=== PATIENT | female | born 1945 | race Caucasian/White ===

== ENCOUNTER → 2016-09-11 | Outpatient (CLI) | payer MEDICARE, OTHER ==
[~2016-09-11] MED LIST: CALC-146 PO; CALC-80 PO; ESCT10T PO; HYDR-34 PO; HYDR200T46 PO; MULT-608 PO; PLAQUENIL PO; PNT40TEC PO; SIMV20TA3 PO; TRAZ150T42 PO; TRAZ50TA67 PO; [UNRECOGNIZED DRUG - OTHER] PO
--- NOTE | 2016-09-11 10:36 | Diagnostic Imaging Report ---
PROCEDURE: US Thyroid. TECHNIQUE: Multiple real-time grayscale images were obtained of the thyroid in various projections. INDICATION: Followup thyroid nodules. COMPARISON: 01/18/2015, 01/13/2014 and 05/13/2013. DISCUSSION: The thyroid gland is normal in echotexture and size. The right thyroid measures 3.9 x 1.4 x 1.2 cm. The left thyroid measures 4.2 x 1.3 x 1.4 cm. Densely calcified nodule within the inferior right thyroid measures 0.9 x 1.2 x 0.8 cm, stable. Mixed density nodule within the mid left thyroid lobe measure slightly larger on today's exam measuring 1.1 x 0.8 x 0.6 cm, previously 0.8 x 0.4 x 0.5 cm. The overall appearance of the nodule is otherwise stable. Recommend 6-12 month sonographic followup. No new nodule identified. No abnormal adjacent lymph nodes identified. IMPRESSION: 1. Heterogenous solid nodule within the left thyroid gland shows slight interval increase in size though maintains an overall benign appearance. Recommend 6-12 month sonographic followup to document stability. Dictated by: Dictated on workstation # [id number]
== END ==
LOC: RAD 10:02
PROVIDERS: ATTEND Otolaryngology Otolaryngology/Facial Plastic Surgery
DX: E04.1 Nontoxic single thyroid nodule (principal)
CPT/HCPCS: 76536

== ENCOUNTER 2016-10-22 20:26 | Emergency (ER) | payer MEDICARE, OTHER ==
[~2016-10-22] VITALS: Ht 160 cm; Wt 56.7 kg
[2016-10-22] MEDS ORDERED: KETOROLAC 30 MG/ML VIAL IM ONE (21:00)
--- NOTE | 2016-10-22 21:03 | ED Fall/Injury ---
General Chief Complaint: Trauma-Non Activation Stated Complaint: FALL, BRUISING/SWELLING TO EYE Nursing Triage Note: PT STATES FELL AT APPROX 4PM, TRIPPED HIT FACE L EYE AREA AND R WRIST. PT HAS LARGE BLACK EYE ON L SIDE AND SWELLING AND BRUISING TO R WRIST. DENIES LOC,DENIES NECK PAIN Source: patient, family (daughter) Exam Limitations: no limitations History of Present Illness Time seen by provider: 21:03 Initial Comments Patient was at a meeting in [place] today and she had a fall also walking from standing. She stumbled over her own feet and landed on her right wrist and left side of her face. She has a large hematoma around her eye and [place]. She' s having some pain. She drove home easily afterwards and has had no blurry vision, and only marginal pain. No nausea or vomiting. No syncope. She did strike her head. She is not on any blood thinners or aspirin. Allergies and Home Medications Allergies Coded Allergies: No Known Drug Allergies (Unverified , 08/16/12) Home Medications Calcium Cmb 2/D3/Min Cmb34/Gen 1 Each Tablet, 1 TAB PO DAILY, (Reported) Escitalopram Oxalate 10 Mg Tablet, 10 MG PO DAILY, (Reported) Hydroxychloroquine Sulfate 200 Mg Tab, 400 MG PO DAILY, (Reported) take 2 (200 mg) tablets Multivitamins 1 Tab Tablet, 1 TAB PO DAILY, (Reported) Pantoprazole Sodium 40 Mg Tablet.dr, 1 TAB PO DAILY, #30 (Reported) Simvastatin 20 Mg Tablet, 20 MG PO DAILY, (Reported) Trazodone Hcl 50 Mg Tablet, 50 MG PO HS, (Reported) Constitutional: No chills, No diaphoresis, No fever, No malaise Eyes: Denies Blurred Vision, Denies Drainage Ears, Nose, Mouth, Throat: denies ear pain, denies ear discharge Respiratory: No cough, No short of breath Cardiovascular: No chest pain, No palpitations Gastrointestinal: No abdominal pain, No constipation, No diarrhea, No nausea Genitourinary: No discharge, No dysuria : No Musculoskeletal: see HPI, No back pain, joint pain, joint swelling Skin: lumps (hematoma over left), No pruritus, No rash Psychiatric/Neurological: Headache, Denies Numbness, Denies Seizure Past Eywdtvb-Nfgekn-Jaqqgj Hx Patient Social History Alcohol Use: Rarely Uses Recreational Drug Use: No Smoking Status: Never a Smoker Recent Foreign Travel: No Contact w/Someone Who Travel: No Recent Infectious Disease Expo: No Recent Hopitalizations: No Immunizations Up To Date Date of Pneumonia Vaccine: Dec 08, 2008 Date of Influenza Vaccine: Dec 25, 2012 Respiratory History of Respiratory Disorde: No Cardiovascular History of Cardiac Disorders: No Neurological History of Neurological Disord: No Reproductive System Hx Reproductive Disorders: No Sexually Transmitted Disease: No Gastrointestinal History of Gastrointestinal Di: No Musculoskeletal History of Musculoskeletal Dis: Yes (BACK) Endocrine History of Endocrine Disorders: No Cancer History of Cancer: No Psychosocial History of Psychiatric Problem: Yes Behavioral Health Disorders: Depression Blood Transfusions History of Blood Disorders: No Physical Exam Vital Signs Vital Sign - Last 12Hours 10/22/16 20:40 Temp 97.9 Pulse 97 Resp 18 B/P (MAP) 147/68 Pulse Ox 95 Capillary Refill : Less Than 3 Seconds General Appearance: WD/WN, no apparent distress HEENT: PERRL/EOMI, normal ENT inspection, TMs normal, pharynx normal, other ( left eye orbital hematoma) Neck: non-tender, full range of motion, supple, normal inspection Cardiovascular: normal peripheral pulses, regular rate, rhythm, no edema, no murmur Respiratory: chest non-tender, lungs clear, normal breath sounds Peripheral Pulses: 2+ Radial Pulses (R), 2+ Radial Pulses (L) Gastrointestinal: normal bowel sounds, non tender, soft Back: normal inspection, no vertebral tenderness Extremities: normal range of motion, normal inspection, no pedal edema, normal capillary refill Neurologic/Psychiatric: hat brim curler II-XII nml as tested, no motor/sensory deficits, alert, normal mood/affect, oriented x 3 Skin: warm/dry, other (hematoma around the left eye) [place] Coma Score Best Eye Response: (4) Open Spontaneously Best Verbal Response: (5) Oriented Best Motor Response: (6) Obeys Commands [place] Total: 15 Progress/Results/Core Measures Results/Orders My Orders Orders - ARMANDO RANDLE Ct Head/Maxillofacial Wo (10/22/16 20:59) Ua Culture If Indicated (10/22/16 20:59) Wrist, Right, 3 Views Or More (10/22/16 20:59) Ketorolac Injection (Toradol Injection) (10/22/16 21:00) Medications Given in ED Current Medications Medications Dose Ordered Sig/Jenelle Route Start Time Stop Time Status Last Admin Dose Admin Ketorolac Tromethamine 15 mg ONCE ONCE IM 10/22/16 21:00 10/22/16 21:03 DC 10/22/16 21:06 15 MG Vital Signs/I&O Vital Sign - Last 12Hours 10/22/16 20:40 Temp 97.9 Pulse 97 Resp 18 B/P (MAP) 147/68 Pulse Ox 95 Blood Pressure Mean: 94 Diagnostic Imaging Diagonstic Imaging: CT Plain Films/CT/US/NM/MRI: head (face) Comments NAME: SKYSERGIOGema Casillas MED REC#: [id number] PHYSICIAN: ARMANDO RANDLE MD CC: SANJUANITA ALBERT MD; ARMANDO RANDLE Page 2 of 2 RADIOLOGY REPORT VIA [place], [place] CC: SANJUANITA ALBERT MD; ARMANDO RANDLE Page 1 of 2 RADIOLOGY REPORT NAME: SKYSERGIOGema Casillas MED REC#: [id number] PT STATUS: REG ER : 1945 PHYSICIAN: ARMANDO RANDLE MD ADMIT DATE: 10/22/16/ER Signed Date of Exam: 10/22/16 CT HEAD/MAXILLOFACIAL WO PROCEDURE: CT head and maxillofacial without contrast. TECHNIQUE: Multiple contiguous axial images were obtained through the head and facial bones without the use of intravenous contrast. INDICATION: Fall with head and facial injuries and associated bruising and swelling. CT HEAD: Multiple contiguous axial CT images of the head were obtained. FINDINGS: Ventricles and sulci are within normal limits for size. There is no intracranial hemorrhage identified. There is no abnormal mass effect or shift of midline structures. IMPRESSION: Unremarkable CT of the head. CT MAXILLOFACIAL: There is a large left periorbital hematoma consistent with ecchymosis which extends anterior to the left maxilla. There is, however, no evidence of fracture. No paranasal sinus air-fluid level is detected. Moderate degenerative changes are seen within the temporomandibular joints. 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 IMPRESSION: Left periorbital ecchymosis without evidence of fracture. Degenerative changes are noted in the temporal mandibular joints and visualized cervical spine. Dictated by: Dictated on workstation # [id number] Dict: 10/22/162133 Trans: 10/22/162140 Interpreted by: SANJUANITA ALBERT MD Electronically signed by: SANJUANITA ALBERT MD 10/22/162140 Reviewed: Reviewed by Me Diagonstic Imaging: Xray Plain Films/CT/US/NM/MRI: other (r wrist) Comments NAME: KEYANNA SWANSON [facility] REC#: [id number] PT STATUS: REG ER : 1945 PHYSICIAN: ARMANDO RANDLE MD ADMIT DATE: 10/22/16/ER Draft Date of Exam:10/22/16 WRIST, RIGHT, 3 VIEWS OR MORE INDICATION: Fall with right wrist injury AP, oblique and lateral views of the right wrist reveal a nondisplaced fracture through the metaphysis of the distal radius. No other fracture or malalignment is identified. There is no abnormal lytic or sclerotic focus. IMPRESSION: Nondisplaced distal radial metaphyseal fracture without evidence of intra-articular disruption. Dictated on workstation # [id number] Dict: 10/22/162139 Trans: 10/22/162142 HERLINDA [id number] Interpreted by: SANJUANITA ALBERT MD Electronically signed by: Reviewed: Reviewed by Me Departure Impression Impression: Primary Impression: Traumatic hematoma of forehead Qualified Codes: S00.83XA - Contusion of other part of head, initial encounter Additional Impression: Distal radius fracture, right Qualified Codes: S52.551A - Other extraarticular fracture of lower end of right radius, initial encounter for closed fracture Disposition: 01 HOME, SELF-CARE Condition: Stable Departure-Patient Inst. Decision time for Depature: 22:40 Referrals: DU SHORE MD (PCP/Family) Primary Care Physician Patient Instructions: Minor Head Injury (DC) Add. Discharge Instructions: Apply ice over your left eye or right wrist as needed every 4-6 hours for 20 minutes to control the swelling and pain. You can also use Tylenol 1000 mg every 8 hours or ibuprofen 800 mg every 8 hours. If the right hand fingers become cool, change color or her unable to feel them then you will need to loosen the splint wrappings up and return to the ER immediately for evaluation. Sunday morning you can call either Drs. Reddy At [phone] [place] [address] orthopedics and you can be seen by Dr. Nettles at [phone]. If the Tylenol ice and ibuprofen are not working then you could use the hydrocodone every 6 hours but realize that hydrocodone will cause constipation and can cause confusion and increase her risk of falls. All discharge instructions reviewed with patient and/or family. Voiced understanding. Scripts Hydrocodone/Acetaminophen (Hydrocodon -Acetaminophen 5-325) 1 Each Tablet 1 EACH PO Q6H Y for PAIN, #20 TAB 0 Refills Prov: ARMANDO RANDLE 10/22/16 Copy Copies To 1: DU SHORE MD, TITUS J Oct 22, 2016 21:03
--- NOTE | 2016-10-22 21:40 | Diagnostic Imaging Report ---
PROCEDURE: CT head and maxillofacial without contrast. TECHNIQUE: Multiple contiguous axial images were obtained through the head and facial bones without the use of intravenous contrast. INDICATION: Fall with head and facial injuries and associated bruising and swelling. CT HEAD: Multiple contiguous axial CT images of the head were obtained. FINDINGS: Ventricles and sulci are within normal limits for size. There is no intracranial hemorrhage identified. There is no abnormal mass effect or shift of midline structures. IMPRESSION: Unremarkable CT of the head. CT MAXILLOFACIAL: There is a large left periorbital hematoma consistent with ecchymosis which extends anterior to the left maxilla. There is, however, no evidence of fracture. No paranasal sinus air-fluid level is detected. Moderate degenerative changes are seen within the temporomandibular joints. 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 IMPRESSION: Left periorbital ecchymosis without evidence of fracture. Degenerative changes are noted in the temporal mandibular joints and visualized cervical spine. Dictated by: Dictated on workstation # [id number]
--- NOTE | 2016-10-22 21:44 | Diagnostic Imaging Report ---
INDICATION: Fall with right wrist injury AP, oblique and lateral views of the right wrist reveal a nondisplaced fracture through the metaphysis of the distal radius. No other fracture or malalignment is identified. There is no abnormal lytic or sclerotic focus. IMPRESSION: Nondisplaced distal radial metaphyseal fracture without evidence of intra-articular disruption. Dictated by: Dictated on workstation # [id number]
[2016-10-22] MEDS ORDERED: HYDR-3812 PO (22:45)
[2016-10-22 22:52] VITALS: BP 140/68
[2016-10-22 22:53] LABS: BILIRUBIN,URINE NEGATIVE (NEGATIVE); KETONES,URINE NEGATIVE (NEGATIVE); LEUKOCYTE ESTERASE ,URINE 3+ (NEGATIVE); NITRITE,URINE NEGATIVE (NEGATIVE); PH,URINE 7 (5-9); PROTEIN,URINE NEGATIVE (NEGATIVE); UROBILINOGEN,URINE NORMAL (NORMAL)
[2016-10-22 23:02] LABS: WBC,URINE 50-100 /HPF
[2016-10-22] MEDS ORDERED: CEPH-507 PO (23:16)
[2016-10-22] MEDS ORDERED: CEPHALEXIN 250 MG (KEFLEX) CAP PO ONE (23:30)
--- OUTSIDE RECORDS SUMMARY | 2016-10-23 12:20 | XMS REPORT | Continuity of Care Document ---
Author Author [facility] Organization [facility] Address Unknown Phone Unavailable Allergies Active Description Code Type Severity Reaction Onset Reported/Identified Relationship to Patient Clinical Status Yes No Known Drug Allergies [id number] Drug Allergy Unknown N/ A 08/16/2012 Medications Problems Date Dx Coded Attending Type Code Diagnosis Diagnosed By 04/19/2010 Ot 592.0 CALCULUS OF KIDNEY 04/19/2010 Ot 592.1 CALCULUS OF URETER 07/07/2010 Ot 735.4 OTHER HAMMER TOE 08/23/2012 MINERVA DPAbner, CAROLYN Mcghee Ot 735.4 12/08/2013 NORA ALCANTAR, DENISHA Levine Ot 211.1 BENIGN NEOPLASM STOMACH 12/08/2013 NORA ALCANTAR, DENISHA Levine Ot 531.90 STOMACH ULCER NOS 02/09/2014 KITA ELIZONDO MD Ot 241.0 02/09/2014 KITA ELIZONDO MD Ot 413.9 02/23/2014 Ot 787.3 02/23/2014 Ot 789.00 02/23/2014 Ot V76.12 02/23/2014 Ot V76.12 02/23/2014 Ot 724.4 02/23/2014 Ot V45.4 02/23/2014 MINERVA DPAbner, CAROLYN Mcghee Ot 735.4 02/23/2014 MINERVA MCKINNEY, CAROLYN Mcghee Ot V72.83 02/23/2014 MINERVA MCKINNEY, CAROLYN Mcghee Ot V74.8 02/23/2014 MOIZ ALCANTAR, JULIUS Gr Ot 724.02 02/23/2014 JULIUS ROCKWELL MD Ot 738.4 02/23/2014 KITA ELIZONDO MD Ot 241.0 02/23/2014 KITA ELIZONDO MD Ot 611.72 03/19/2014 Ot 787.3 03/19/2014 Ot 789.00 03/19/2014 Ot V76.12 03/19/2014 Ot V76.12 03/19/2014 Ot 724.4 03/19/2014 Ot V45.4 03/19/2014 PALMA DPM, CAROLYN P Ot 735.4 03/19/2014 PALMA DPM, CAROLYN P Ot V72.83 03/19/2014 PALMA DPM, CAROLYN P Ot V74.8 03/19/2014 MOIZ ALCANTAR, JULIUS J Ot 724.02 03/19/2014 MOIZ ALCANTAR, JULIUS J Ot 738.4 03/19/2014 CARO ALCANTAR, KITA Levine Ot 241.0 03/19/2014 CARO ALCANTAR, KITA Levine Ot 611.72 03/20/2014 Ot 787.3 03/20/2014 Ot 789.00 03/20/2014 Ot V76.12 03/20/2014 Ot V76.12 03/20/2014 Ot 724.4 03/20/2014 Ot V45.4 03/20/2014 PALMA DPM, CAROLYN P Ot 735.4 03/20/2014 PALMA DPM, CAROLYN P Ot V72.83 03/20/2014 PALMA DPM, CAROLYN P Ot V74.8 03/20/2014 MOIZ ALCANTAR, JULIUS J Ot 724.02 03/20/2014 MOIZ ALCANTAR, JULIUS Gr Ot 738.4 03/20/2014 CARO ALCANTAR, KITA Levine Ot 241.0 03/20/2014 CARO ALCANTAR, KITA Levine Ot 611.72 06/26/2014 CARO ALCANTAR, KITA Levine Ot 473.9 06/26/2014 CARO ALCANTAR, KITA Levine Ot V15.88 06/26/2014 CARO ALCANTAR, KITA Levine Ot 473.9 06/26/2014 CARO ALCANTAR, KITA M Ot V15.88 07/25/2014 CARO ALCANTAR, KITA M Ot 473.9 07/25/2014 CARO ALCANTAR, KITA Levine Ot V15.88 08/19/2014 LOLIS SPRING LEATHER COVERER Ot 368.2 08/19/2014 LOLIS SPRING LEATHER COVERER Ot 433.10 08/19/2014 LOLIS SPRING LEATHER COVERER Ot 433.30 08/19/2014 LOLIS SPRING LEATHER COVERER Ot 784.0 11/10/2014 MONE ALCANTAR, DU Odell Ot V76.12 02/11/2015 SHIVANI ALCANTAR, KERMIT P Ot E04.2 04/15/2015 Ot 610.0 04/15/2015 Ot 592.0 04/15/2015 Ot 592.1 04/15/2015 Ot V72.63 04/15/2015 Ot V74.8 04/15/2015 Ot 455.0 04/15/2015 Ot 455.3 04/15/2015 Ot V76.51 04/15/2015 Ot 735.4 04/15/2015 Ot V72.84 04/15/2015 Ot V74.8 04/15/2015 SHIVANI ALCANTAR, KERMIT Mcghee Ot 241.0 04/15/2015 SHIVANI ALCANTAR, KERMIT Mcghee Ot 241.0 04/15/2015 CARO ALCANTAR, KITA M Ot V15.89 04/15/2015 CARO ALCANTAR, KITA M Ot V76.11 04/15/2015 CARO ALCANTAR, KITA M Ot 789.01 04/15/2015 CARO ALCANTAR, KITA M Ot 789.06 04/15/2015 CARO ALCANTAR, KITA M Ot 789.01 04/15/2015 NORA ALCANTAR, DENISHA M Ot V72.84 04/15/2015 CARO ALCANTAR, KITA M Ot 241.0 04/15/2015 CARO ALCANTAR, KITA M Ot 413.9 04/15/2015 CARO ALCANTAR, KITA M Ot 473.9 04/15/2015 CARO ALCANTAR, KITA M Ot V15.88 04/15/2015 LOLIS SPRING LEATHER COVERER Ot 368.2 04/15/2015 LOLIS SPRING LEATHER COVERER Ot 433.10 04/15/2015 LOLIS SPRING LEATHER COVERER Ot 433.30 04/15/2015 LOLIS SPRING LEATHER COVERER Ot 784.0 04/15/2015 MONE ALCANTAR, DU Odell Ot V76.12 04/15/2015 SHIVANI ALCANTRA, KERMIT Mcghee Ot E04.2 04/15/2015 ORTIZ DENT CAN OPERATOR Ot R31.9 04/19/2015 SHIVANI ALCANTAR, KERMIT Mcghee Ot E04.2 04/19/2015 Ot 610.0 04/19/2015 Ot 592.0 04/19/2015 Ot 592.1 04/19/2015 Ot V72.63 04/19/2015 Ot V74.8 04/19/2015 Ot 455.0 04/19/2015 Ot 455.3 04/19/2015 Ot V76.51 04/19/2015 Ot 735.4 04/19/2015 Ot V72.84 04/19/2015 Ot V74.8 04/19/2015 SHIVANI ALCANTAR, KERMIT P Ot 241.0 04/19/2015 SHIVANI ALCANTAR, KERMIT P Ot 241.0 04/19/2015 CARO ALCANTAR, KITA M Ot V15.89 04/19/2015 CARO ALCANTAR, KITA M Ot V76.11 04/19/2015 CARO ALCANTAR, KITA M Ot 789.01 04/19/2015 CARO ALCANTAR, KITA M Ot 789.06 04/19/2015 CARO ALCANTAR, KITA M Ot 789.01 04/19/2015 NORA ALCANTAR, DENISHA M Ot V72.84 04/19/2015 CARO ALCANTAR, KITA M Ot 241.0 04/19/2015 CARO ALCANTAR, KITA M Ot 413.9 04/19/2015 CARO ALCANTAR, KITA M Ot 473.9 04/19/2015 CARO ALCANTAR, KITA M Ot V15.88 04/19/2015 LOLIS SPRING LEATHER COVERER Ot 368.2 04/19/2015 LOLIS SPRING LEATHER COVERER Ot 433.10 04/19/2015 LOLIS SPRING LEATHER COVERER Ot 433.30 04/19/2015 LOLIS SPRING LEATHER COVERER Ot 784.0 04/19/2015 MONE ALCANTAR, DU A Ot V76.12 04/19/2015 SHIVANI ALCANTAR, KERMIT P Ot E04.2 04/19/2015 ORTIZ DENT CAN OPERATOR Ot R31.9 04/19/2015 LOLIS SPRING LEATHER COVERER Ot N20.0 04/27/2015 Ot 610.0 04/27/2015 Ot 592.0 04/27/2015 Ot 592.1 04/27/2015 Ot V72.63 04/27/2015 Ot V74.8 04/27/2015 Ot 455.0 04/27/2015 Ot 455.3 04/27/2015 Ot V76.51 04/27/2015 Ot 735.4 04/27/2015 Ot V72.84 04/27/2015 Ot V74.8 04/27/2015 SHIVANI ALCANTAR, KERMIT P Ot 241.0 04/27/2015 SHIVANI ALCANTAR, KERMIT Mchgee Ot 241.0 04/27/2015 CARO ALCANTAR, KITA M Ot V15.89 04/27/2015 CARO ALCANTAR, KITA M Ot V76.11 04/27/2015 CARO ALCANTAR, KITA M Ot 789.01 04/27/2015 CARO ALCANTAR, KITA M Ot 789.06 04/27/2015 CARO ALCANTAR, KITA M Ot 789.01 04/27/2015 NORA ALCANTAR, DENISHA M Ot V72.84 04/27/2015 CARO ALCANTAR, KITA M Ot 241.0 04/27/2015 CARO ALCANTAR, KITA M Ot 413.9 04/27/2015 CARO ALCANTAR, KITA M Ot 473.9 04/27/2015 CARO ALCANTAR, KITA M Ot V15.88 04/27/2015 LOLIS SPRING LEATHER COVERER Ot 368.2 04/27/2015 LOLIS SPRING LEATHER COVERER Ot 433.10 04/27/2015 LOLIS SPRING LEATHER COVERER Ot 433.30 04/27/2015 LOLIS SPRING LEATHER COVERER Ot 784.0 04/27/2015 MONE ALCANTAR, DU A Ot V76.12 04/27/2015 SHIVANI ALCANTAR, KERMIT Mcghee Ot E04.2 04/27/2015 ORTIZ DENT APRN Ot R31.9 04/27/2015 LOLIS SPRING LEATHER COVERER Ot N20.0 05/06/2015 LOLIS SPRING LEATHER COVERER Ot N20.0 05/10/2015 ORTIZ DENT CAN OPERATOR Ot R31.9 05/18/2015 ANDRE ALCANTAR, HAROON Odell Ot N20.9 08/05/2015 Ot 610.0 SOLITARY CYST OF BREAST 08/05/2015 Ot 592.0 CALCULUS OF KIDNEY 08/05/2015 Ot 592.1 CALCULUS OF URETER 08/05/2015 Ot V72.63 PRE-PROCEDURAL LABORATORY EXAMINATION 08/05/2015 Ot V74.8 SCREEN-BACTERIAL DIS NEC 08/05/2015 Ot 455.0 INT HEMORRHOID W/O COMPL 08/05/2015 Ot 455.3 EXT HEMORRHOID W/O COMPL 08/05/2015 Ot V76.51 SCREEN MAL NEOP-COLON 08/05/2015 Ot 735.4 OTHER HAMMER TOE 08/05/2015 Ot V72.84 EXAM PRE-OPERATIVE NOS 08/05/2015 Ot V74.8 SCREEN-BACTERIAL DIS NEC 08/05/2015 SHIVANI ALCANTAR, KERMIT Mcghee Ot 241.0 NONTOX UNINODULAR GOITER 08/05/2015 SHIVANI ALCANTAR, KERMIT Mcghee Ot 241.0 NONTOX UNINODULAR GOITER 08/05/2015 CARO ALCANTAR, KITA Levine Ot V15.89 HX-HEALTH HAZARDS NEC 08/05/2015 KITA ELIZONDO MD Ot V76.11 SCRN MAMMO-HIGH RISK PT, MALIGNANT NEOPL 08/05/2015 CARO ALCANTAR, KITA Levine Ot 789.01 ABDOMINAL PAIN, RIGHT UPPER QUADRANT 08/05/2015 KITA ELIZONDO MD Ot 789.06 ABDOMINAL PAIN, EPIGASTRIC 08/05/2015 KITA ELIZONDO MD Ot 789.01 ABDOMINAL PAIN, RIGHT UPPER QUADRANT 08/05/2015 DENISHA MELENDEZ MD Ot V72.84 EXAM PRE-OPERATIVE NOS 08/05/2015 KITA ELIZONDO MD Ot 241.0 NONTOX UNINODULAR GOITER 08/05/2015 KITA ELIZONDO MD Ot 413.9 ANGINA PECTORIS NEC/NOS 08/05/2015 KITA ELIZONDO MD Ot 473.9 CHRONIC SINUSITIS NOS 08/05/2015 KITA ELIZONDO MD Ot V15.88 HISTORY OF FALL 08/05/2015 LOLIS SPRING Ot 368.2 DIPLOPIA 08/05/2015 LOLIS SPRING Ot 433.10 CAROTID ARTERY OCCLUSION W O CEREBRAL IN 08/05/2015 LOLIS SPRING Ot 433.30 MULT BILTRAL ARTERY OCCLUSION WO CEREBRA 08/05/2015 LOLSI SPRING Ot 784.0 HEADACHE 08/05/2015 MONE ALCANTAR, DU Odell Ot V76.12 OTH SCREEN MAMMO-MALIGN NEOPLASM OF RAVINDER 08/05/2015 SHIVANI ALCANTAR, KERMIT Mcghee Ot E04.2 NONTOXIC MULTINODULAR GOITER 08/05/2015 ORTIZ DENT APRN Ot R31.9 HEMATURIA, UNSPECIFIED 08/05/2015 CLEMENTINE LOLIS M LEATHER COVERER Ot N20.0 CALCULUS OF KIDNEY 08/05/2015 ANDRE ALCANTAR, HAROON Odell Ot N20.9 URINARY CALCULUS, UNSPECIFIED 08/05/2015 CLEMENTINEBLAIREGRADY Levine LEATHER COVERER Ot 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 08/06/2015 CLEMENTINE LOLIS Abner LEATHER COVERER Ot 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 08/10/2015 LOLIS SPRING LEATHER COVERER Ot 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 08/11/2015 LOLIS SPRING Abner LEATHER COVERER Ot 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 09/01/2015 LOLIS SPRING [facility] Ot 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 11/11/2015 Ot 735.4 OTHER HAMMER TOE 11/11/2015 Ot V72.84 EXAM PRE-OPERATIVE NOS 11/11/2015 Ot V74.8 SCREEN-BACTERIAL DIS NEC 11/11/2015 SHIVANI ALCANTAR, KERMIT Mcghee Ot 241.0 NONTOX UNINODULAR GOITER 11/11/2015 KERMIT PARRISH MD Ot 241.0 NONTOX UNINODULAR GOITER 11/11/2015 CARO ALCANTAR, KITA Levine Ot V15.89 HX-HEALTH HAZARDS NEC 11/11/2015 CARO ALCANTAR, KITA Levine Ot V76.11 SCRN MAMMO-HIGH RISK PT, MALIGNANT NEOPL 11/11/2015 CARO ALCANTAR, KITA Levine Ot 789.01 ABDOMINAL PAIN, RIGHT UPPER QUADRANT 11/11/2015 KITA ELIZONDO MD Ot 789.06 ABDOMINAL PAIN, EPIGASTRIC 11/11/2015 KITA ELIZONDO MD Ot 789.01 ABDOMINAL PAIN, RIGHT UPPER QUADRANT 11/11/2015 NORA ALCANTAR, DENISHA M Ot V72.84 EXAM PRE-OPERATIVE NOS 11/11/2015 KITA ELIZONDO MD Ot 241.0 NONTOX UNINODULAR GOITER 11/11/2015 KITA ELIZONDO MD Ot 413.9 ANGINA PECTORIS NEC/NOS 11/11/2015 KITA ELIZONDO MD Ot 473.9 CHRONIC SINUSITIS NOS 11/11/2015 KITA ELIZONDO MD Ot V15.88 HISTORY OF FALL 11/11/2015 LOLIS SPRING LEATHER COVERER Ot 368.2 DIPLOPIA 11/11/2015 LOLIS SPRING LEATHER COVERER Ot 433.10 CAROTID ARTERY OCCLUSION W O CEREBRAL IN 11/11/2015 LOLIS SPRING LEATHER COVERER Ot 433.30 MULT BILTRAL ARTERY OCCLUSION WO CEREBRA 11/11/2015 LOLIS SPRING LEATHER COVERER Ot 784.0 HEADACHE 11/11/2015 MONE ALCANTAR, DU Odell Ot V76.12 OTH SCREEN MAMMO-MALIGN NEOPLASM OF RAVINDER 11/11/2015 SHIVANI ALCANTAR, KERMIT Mcghee Ot E04.2 NONTOXIC MULTINODULAR GOITER 11/11/2015 ORTIZ DENT CAN OPERATOR Ot R31.9 HEMATURIA, UNSPECIFIED 11/11/2015 LOLIS SPRING LEATHER COVERER Ot N20.0 CALCULUS OF KIDNEY 11/11/2015 ANDRE ALCANTAR, HAROON Odell Ot N20.9 URINARY CALCULUS, UNSPECIFIED 11/11/2015 LOLIS SPRING LEATHER COVERER Ot 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 11/15/2015 ORTIZ DENT CAN OPERATOR Ot Z12.31 ENCNTR SCREEN MAMMOGRAM FOR MALIGNANT NE 11/24/2015 ORTIZ DENT CAN OPERATOR Ot Z12.31 ENCNTR SCREEN MAMMOGRAM FOR MALIGNANT NE 09/07/2016 SHIVANI ALCANTAR, KERMIT P Ot 241.0 NONTOX UNINODULAR GOITER 09/07/2016 KERMIT PARRISH MD Ot 241.0 NONTOX UNINODULAR GOITER 09/07/2016 KITA ELIZONDO MD Ot V15.89 HX-HEALTH HAZARDS NEC 09/07/2016 KITA ELIZONDO MD Ot V76.11 SCRN MAMMO-HIGH RISK PT, MALIGNANT NEOPL 09/07/2016 KITA ELIZONDO MD Ot 789.01 ABDOMINAL PAIN, RIGHT UPPER QUADRANT 09/07/2016 KITA ELIZONDO MD Ot 789.06 ABDOMINAL PAIN, EPIGASTRIC 09/07/2016 KITA ELIZONDO MD Ot 789.01 ABDOMINAL PAIN, RIGHT UPPER QUADRANT 09/07/2016 NORA ALCANTAR, DENISHA Levine Ot V72.84 EXAM PRE-OPERATIVE NOS 09/07/2016 KITA ELIZONDO MD Ot 241.0 NONTOX UNINODULAR GOITER 09/07/2016 KITA ELIZONDO MD Ot 413.9 ANGINA PECTORIS NEC/NOS 09/07/2016 KITA ELIZONDO MD Ot 473.9 CHRONIC SINUSITIS NOS 09/07/2016 KITA ELIZONDO MD Ot V15.88 HISTORY OF FALL 09/07/2016 LOLIS SPRING LEATHER COVERER Ot 368.2 DIPLOPIA 09/07/2016 LOLIS SPRING LEATHER COVERER Ot 433.10 CAROTID ARTERY OCCLUSION W O CEREBRAL IN 09/07/2016 LOLIS SPRING LEATHER COVERER Ot 433.30 MULT BILTRAL ARTERY OCCLUSION WO CEREBRA 09/07/2016 LOLIS SPRING LEATHER COVERER Ot 784.0 HEADACHE 09/07/2016 MONE ALCANTAR, DU Odell Ot V76.12 OTH SCREEN MAMMO-MALIGN NEOPLASM OF RAVINDER 09/07/2016 SHIVANI ALCANTAR, KERMIT Mcghee Ot E04.2 NONTOXIC MULTINODULAR GOITER 09/07/2016 ORTIZ DENT CAN OPERATOR Ot R31.9 HEMATURIA, UNSPECIFIED 09/07/2016 LOLIS SPRING LEATHER COVERER Ot N20.0 CALCULUS OF KIDNEY 09/07/2016 ANDRE ALCANTAR, HAROON Odell Ot N20.9 URINARY CALCULUS, UNSPECIFIED 09/07/2016 LOLIS SPRING LEATHER COVERER Ot 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 09/07/2016 ORTIZ DENT CAN OPERATOR Ot Z12.31 ENCNTR SCREEN MAMMOGRAM FOR MALIGNANT NE 09/11/2016 SHIVANI ALCANTAR, KERMIT Mcghee Ot 241.0 NONTOX UNINODULAR GOITER 09/11/2016 SHIVANI ALCANTAR, KERMIT Mcghee Ot 241.0 NONTOX UNINODULAR GOITER 09/11/2016 KITA ELIZONDO MD Ot V15.89 HX-HEALTH HAZARDS NEC 09/11/2016 KITA ELIZONDO MD Ot V76.11 SCRN MAMMO-HIGH RISK PT, MALIGNANT NEOPL 09/11/2016 KITA ELIZONDO MD Ot 789.01 ABDOMINAL PAIN, RIGHT UPPER QUADRANT 09/11/2016 KITA ELIZONDO MD Ot 789.06 ABDOMINAL PAIN, EPIGASTRIC 09/11/2016 KITA ELIZONDO MD Ot 789.01 ABDOMINAL PAIN, RIGHT UPPER QUADRANT 09/11/2016 NORA ALCANTAR, DENISHA eLvine Ot V72.84 EXAM PRE-OPERATIVE NOS 09/11/2016 KITA ELIZONDO MD Ot 241.0 NONTOX UNINODULAR GOITER 09/11/2016 KITA ELIZONDO MD Ot 413.9 ANGINA PECTORIS NEC/NOS 09/11/2016 KITA ELIZONDO MD Ot 473.9 CHRONIC SINUSITIS NOS 09/11/2016 KITA ELIZONDO MD Ot V15.88 HISTORY OF FALL 09/11/2016 LOLIS SPRING LEATHER COVERER Ot 368.2 DIPLOPIA 09/11/2016 LOLIS SPRING LEATHER COVERER Ot 433.10 CAROTID ARTERY OCCLUSION W O CEREBRAL IN 09/11/2016 LOLIS SPRING LEATHER COVERER Ot 433.30 MULT BILTRAL ARTERY OCCLUSION WO CEREBRA 09/11/2016 LOLIS SPRING LEATHER COVERER Ot 784.0 HEADACHE 09/11/2016 MONE ALCANTAR, DU Odell Ot V76.12 OTH SCREEN MAMMO-MALIGN NEOPLASM OF RAVINDER 09/11/2016 KERMIT PARRISH MD Ot E04.2 NONTOXIC MULTINODULAR GOITER 09/11/2016 ORTIZ DENT APRN Ot R31.9 HEMATURIA, UNSPECIFIED 09/11/2016 LOLIS SPRING LEATHER COVERER Ot N20.0 CALCULUS OF KIDNEY 09/11/2016 ANDRE ALCANTAR, HAROON Odell Ot N20.9 URINARY CALCULUS, UNSPECIFIED 09/11/2016 LOLIS SPRING Ot 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 Visit Date/Time Discharge Status Pt. Type Provider Facility Loc./Unit Complaint [id number] 09/11/2016 10:02:00 2016 23:59:59 CLS Outpatient KERMIT PARRISH MD [facility] RAD RT THYROID NODULE E04.1 [id number] 11/11/2015 09:19:00 2015 23:59:59 CLS Outpatient ORTIZ DENT APRN [facility] RAD SCREENING [id number] 08/05/2015 12:45:00 2015 23:59:59 CLS Outpatient LOLIS SPRING [facility] RAD MILD PLAQUE, 1 YEAR FOLLOW UP [id number] 04/27/2015 14:21:00 2015 23:59:59 CLS Outpatient HAROON POWELL MD [facility] RAD STONE [id number] 04/15/2015 10:15:00 2015 23:59:59 CLS Outpatient LOLIS SPRING [facility] RAD KIDNEY STONES [id number] 04/12/2015 11:12:00 2015 23:59:59 CLS Outpatient ORTIZ DENT APRN [facility] RAD HEMATURIA [id number] 01/18/2015 09:00:00 2014 23:59:59 CLS Outpatient KERMIT PARRISH MD [facility] RAD BILAT THYROID NODULES [id number] 10/20/2014 09:40:00 2014 23:59:59 CLS Outpatient DU SHORE MD [facility] RAD SCREENING [id number] 07/30/2014 13:01:00 2014 23:59:59 CLS Outpatient LOLIS SPRING [facility] RAD BRUIT FALL HEADACHE DOUBLE VISION [id number] 06/18/2014 09:29:00 2014 23:59:59 CLS Outpatient KITA ELIZONDO MD [facility] RAD SINUSITIS,FALL C/O HEADACHE [id number] 01/13/2014 06:54:00 2013 23:59:59 CLS Outpatient KITA ELIZONDO MD [facility] CARD ANGINA,F/U THYROID NODULE [id number] 12/08/2013 07:23:00 2013 10:30:00 DIS Outpatient DENISHA MELENDEZ MD [facility] UPPER GASTRIC PAIN;ABDOMINAL PAIN [id number] 12/03/2013 07:20:00 2013 23:59:59 CLS Outpatient DENISHA MELENDEZ MD [facility] PREOP UPPER GASTRIC PAIN;ABDOMINAL PAIN [id number] 11/24/2013 09:56:00 2013 23:59:59 CLS Outpatient KITA ELIZONDO MD [facility] CARD RUQ PAIN [id number] 11/12/2013 08:33:00 2013 23:59:59 CLS Outpatient KITA ELIZONDO MD [facility] RAD RUQ PAIN [id number] 10/21/2013 13:13:00 2013 23:59:59 CLS Outpatient KITA ELIZONDO MD [facility] RAD HX OF BX [id number] 05/13/2013 09:26:00 2013 23:59:59 CLS Outpatient KERMIT PARRISH MD [facility] RAD THY NODULE [id number] 11/01/2012 10:00:00 2012 23:59:59 CLS Outpatient KERMIT PARRISH MD [facility] RAD RT THYROID NODULE [id number] 10/14/2012 13:07:00 2012 23:59:59 CLS Outpatient KITA ELIZONDO MD [facility] RAD [id number] 08/23/2012 06:00:00 2012 10:25:00 DIS Outpatient CAROLYN PALMA DPM [facility] SDC [id number] 08/16/2012 09:33:00 2012 23:59:59 CLS Outpatient CAROLYN PALMA DPM [facility] PREOP [id number] 08/14/2012 07:31:00 2012 23:59:59 CLS Outpatient JULIUS ROCKWELL MD [facility] RAD [id number] 02/23/2014 16:19:00 Document Registration [id number] 12/19/2011 09:44:00 Document Registration [id number] 10/12/2011 09:53:00 Document Registration [id number] 10/06/2010 13:24:00 Document Registration [id number] 07/07/2010 05:39:00 Document Registration [id number] 07/04/2010 15:34:00 Document Registration [id number] 05/04/2010 05:52:00 Document Registration [id number] 04/19/2010 05:39:00 Document Registration [id number] 04/14/2010 07:59:00 Document Registration [id number] 04/12/2010 09:56:00 Document Registration [id number] 04/06/2010 08:28:00 Document Registration
--- OUTSIDE RECORDS SUMMARY | 2016-10-23 12:20 | XMS REPORT ---
Author TON [facility] eClinicalWorks Address Unknown Phone Unavailable Care Team Providers Care Geodetic Surveyor Technologist Name Role Phone TON BOLDEN CP Unavailable Allergies No Known Allergies Problems Problem Type Condition Code Onset Dates Condition Status Assessment Encounter for immunization Z23 Active Medications No Known Medications Procedures Procedure Coding System Code Date SINGLE IMMUNIZATION ADMIN CPT-4 75359 Jan 21, 2016 FLUZONE HIGH DOSE 65 AND UP 2015 CPT-4 03452 Jan 21, 2016 Results No Known Results Immunizations Vaccine Administration Date FLUZONE HIGH DOSE 65 AND UP 2015Jan 21, 2016 Summary Purpose eClinicalWorks Submission
--- OUTSIDE RECORDS SUMMARY | 2016-10-23 12:20 | XMS REPORT ---
Author Author TREVOR LERMA Organization eClinical[employer] Address Unknown Phone Unavailable Care Team Providers Care Nut Picker Name Role Phone TREVOR LERMA CP Unavailable Allergies, Adverse Reactions, Alerts Substance Reaction Event Type N.K.D.A. Info Not Available Non Drug Allergy Problems Problem Type Condition Code Onset Dates Condition Status Assessment Acute non-recurrent frontal sinusitis J01.10 Active Assessment Shortness of breath R06.02 Active Medications Medication Code System Code Instructions Start Date End Date Status Dosage Augmentin [facility] [address]-69 875-125 MG Orally every 12 hrs Dec 06, 2015 Dec 16, 2015 1 tablet Azithromycin [facility] [address]-72 250 MG Orally Once a day Dec 02, 2015 Dec 07, 2015 2 tablets on the first day, then 1 tablet daily for 4 days Fluticasone Propionate [facility] [address]-45 50 MCG/ACT Nasally Once a day Dec 02, 2015 1-2 spray in each nostril Hydroxychloroquine Sulfate [facility] [address]-53 200 MG Orally Once a day 1 tablet with food or milk Trazodone HCl [facility] [address]-73 50 MG Orally Once a day 1 tablet at bedtime as needed Lexapro [facility] [address]-14 10 MG Orally Once a day 1 tablet Procedures Procedure Coding System Code Date CHEST X-RAY CPT-4 29529 Dec 06, 2015 [facility] VISIT ESTABLISHED PATIENT CPT-4 G0467 Dec 06, 2015 MEASURE BLOOD OXYGEN LEVEL CPT-4 24348 Dec 06, 2015 Office Visit, Est Pt., Level 3 CPT-4 93763 Dec 06, 2015 Vital Signs Date/Time: Dec 06, 2015 Cardiac Monitoring Heart Rate 92 bpm Weight 120.2 lbs Height 64 in BMI 20.63 Index Oximetry 95 % Blood Pressure Diastolic 78 mmHg Blood Pressure Systolic 142 mmHg Results No Known Results Summary Purpose eClinicalWorks Submission
== END 2016-10-22 23:22 | disposition home or self-care (01) ==
LOC: EDUNIT# 20:26 → ER 20:28
DX: S52.591A Other fractures of lower end of right radius, initial encounter for closed fracture (principal); S00.83XA Contusion of other part of head, initial encounter; F32.9 Major depressive disorder, single episode, unspecified; W01.0XXA Fall on same level from slipping, tripping and stumbling without subsequent striking against object, initial encounter; Y93.01 Activity, walking, marching and hiking
CPT/HCPCS: 29125; 70450; 70486; 73110; 81000; 87088; 96372

== ENCOUNTER → 2016-11-18 | Outpatient (CLI) | payer MEDICARE, OTHER ==
[~2016-11-18] MED LIST changes: +CEPH-507 PO; +HYDR-3812 PO
--- NOTE | 2016-11-18 16:34 | Diagnostic Imaging Report ---
PROCEDURE: MR imaging of the brain without contrast. INDICATION: Status post fall one month earlier hitting left side of head. Headaches. TECHNIQUE: Multiplanar, multisequence MR imaging of the brain was performed without contrast. CORRELATION STUDY: CT head 10/22/2016. FINDINGS: Ventricles and sulci are unremarkable. There are no restricted areas of diffusion. No midline shift or mass effect. No edema pattern. No significant white matter signal abnormalities. Craniocervical junction and midline structures appearing unremarkable. Sella unremarkable. Normal expected intracranial flow voids. No significant gradient echo signal abnormalities. The paranasal sinuses and mastoid air cells relatively clear. Previously noted left periorbital edema has resolved. IMPRESSION: Unremarkable noncontrast MRI examination brain. Dictated by: Dictated on workstation # [id number]
== END ==
LOC: RAD 11:23
PROVIDERS: ATTEND Nurse Practitioner Family
DX: R51 Headache (principal)
CPT/HCPCS: 70551

== ENCOUNTER → 2016-12-07 | Outpatient (CLI) | payer MEDICARE, OTHER ==
--- NOTE | 2016-12-08 13:02 | Diagnostic Imaging Report ---
Bilateral screening mammogram 2D views with tomosynthesis. The current study was also evaluated with a Computer Aided Detection (CAD) system. INDICATION: Screening. No current complaints stated on the questionnaire. COMPARISON: 11/11/15. FINDINGS: The breasts are composed of heterogenously dense parenchyma which may decrease mammographic sensitivity. Biopsy clip in the right breast is seen. Allowing for technique and positional differences, no suspicious change is seen. IMPRESSION: Dense breasts with no definite change. ACR BI-RADS Category 2: Benign findings. Result letter will be mailed to the patient. Note: At least 10% of breast cancer is not imaged by mammography. Dictated on workstation # [id number]
== END ==
LOC: RAD 13:22
PROVIDERS: ATTEND Nurse Practitioner Family
DX: Z12.31 Encounter for screening mammogram for malignant neoplasm of breast (principal)
CPT/HCPCS: 77067

== ENCOUNTER → 2017-04-23 | Outpatient (CLI) | payer MEDICARE, OTHER ==
[~2017-04-23] MED LIST changes: +ACHD5005 PO; -HYDR-3812 PO
--- NOTE | 2017-04-23 17:09 | Diagnostic Imaging Report ---
EXAMINATION: Magnetic resonance imaging of the right wrist without contrast. DATE: April 23, 2017. COMPARISON: Right wrist radiographs October 22, 2016. INDICATION: 71-year-old female, history of fracture in September 2016. Persistent right-sided wrist pain. TECHNIQUE: Magnetic Resonance Imaging sequences were performed of the wrist without contrast. FINDINGS: TRIANGULAR FIBROCARTILAGE COMPLEX: There is no discretely identified tear of the triangular fibrocartilage complex on non-arthrogram evaluation. There is a small amount of fluid in the distal radioulnar joint. INTRINSIC LIGAMENTS: There is increased signal in the region of the central aspect of the scapholunate ligament on coronal gradient echo sequence image 31 which does question a small perforation or tear of the scapholunate ligament at this location. There is no abnormal widening of the scapholunate interval. The lunotriquetral ligament is grossly intact. JOINTS: There is a small amount of fluid in the distal radioulnar joint. There are mild changes of osteoarthritis at the first carpometacarpal joint. CARPAL TUNNEL: The flexor retinaculum is unremarkable. The flexor digitorum superficialis and profundus are intact. The median nerve is unremarkable. FLEXOR TENDONS: The flexor carpi ulnaris, flexor pollicis longus and carpi radialis are intact. EXTENSOR TENDONS: There is a small amount of fluid within the first, second, third, fourth, fifth, and sixth extensor compartment tendon sheaths compatible with low-level tenosynovitis. There is no identified tear of an extensor tendon. BONE: There is prominent edema-like signal in the ulnar aspect of the distal radius without visible fracture line. This may potentially relate to bone contusion. There are no pathognomonic signal changes of osteonecrosis. There is low level degenerative-related marrow edema adjacent to the first carpometacarpal joint. BURSAE AND SOFT TISSUES: The bursae and soft tissues surrounding the wrist are within normal limits. IMPRESSION: 1. Prominent marrow edema in the ulnar aspect of the distal radius without identified fracture line. This may relate to bone contusion. 2. No pathognomonic signal changes of osteonecrosis. No currently visible fracture line. 3. Small amount of fluid in the distal radioulnar joint without visible tear of the triangular fibrocartilage complex on non-arthrogram evaluation. 4. Abnormal signal in the region of the central membranous portion of the scapholunate ligament which may potentially relate to a small tear or perforation. This may be better evaluated with MRI arthrogram if clinically indicated. There is no widening of the scapholunate interval. 5. Grossly intact lunotriquetral ligament. 6. Low-level tenosynovitis involving all of the extensor compartment tendons. Dictated by: Dictated on workstation # [id number]
== END ==
LOC: RAD 15:15
PROVIDERS: ATTEND Nurse Practitioner
DX: M25.431 Effusion, right wrist (principal); M65.88 Other synovitis and tenosynovitis, other site; M24.131 Other articular cartilage disorders, right wrist; Z87.81 Personal history of (healed) traumatic fracture
CPT/HCPCS: 73221

== ENCOUNTER → 2018-01-25 | Outpatient (CLI) | payer MEDICARE, OTHER ==
--- NOTE | 2018-01-25 12:28 | Diagnostic Imaging Report ---
INDICATION: Routine screening. COMPARISON: 12/07/2016 and 11/11/2015. TECHNIQUE: 2D and 3D bilateral screening mammography was performed with CAD. FINDINGS: Both breasts are heterogeneously dense, limiting the sensitivity of mammography. A biopsy clip in the upper outer right breast is noted. There are benign parenchymal and vascular calcifications bilaterally. No mass or malignant appearing microcalcifications are seen. The axillae are unremarkable. IMPRESSION: No mammographic features suspicious for malignancy are identified. ACR BI-RADS Category 2: Benign findings. Result letter will be mailed to the patient. Note: At least 10% of breast cancer is not imaged by mammography. Dictated by: Dictated on workstation # [id number]
== END ==
LOC: RAD 10:59
PROVIDERS: ATTEND Nurse Practitioner Family
DX: Z12.31 Encounter for screening mammogram for malignant neoplasm of breast (principal)
CPT/HCPCS: 77067

== ENCOUNTER → 2018-05-27 | Outpatient (CLI) | payer MEDICARE, OTHER ==
--- NOTE | 2018-05-27 18:57 | Diagnostic Imaging Report ---
PROCEDURE: CT chest without contrast. TECHNIQUE: Multiple contiguous axial images were obtained through the chest without the use of intravenous contrast. Auto Exposure Controls were utilized during the CT exam to meet ALARA standards for radiation dose reduction. INDICATION: Chronic cough. COMPARISON: No priors. FINDINGS: The lungs are clear. No mass or acute infiltrate. There is no evidence for thoracic lymphadenopathy. There is no pleural or pericardial effusion. No acute chest wall pathology. Upper abdomen reveals nonobstructing left renal calcifications with no free air or free fluid. IMPRESSION: No mass, infiltrate, effusion, or acute appearing abnormalities. Dictated by: Dictated on workstation # [id number]
== END ==
LOC: RAD 14:41
PROVIDERS: ATTEND Pediatrics
DX: R05 Cough (principal)
CPT/HCPCS: 71250

== ENCOUNTER → 2018-07-09 | Outpatient (CLI) | payer MEDICARE, OTHER ==
[2018-07-09 09:21] LABS: BASOPHILS % (AUTO) 0 % (0-10); EOSINOPHILS % (AUTO) 1 % (0-10); HEMATOCRIT 37 % (35-52); LYMPHOCYTES # (AUTO) 1.5 X 10^3 (1.0-4.0); LYMPHOCYTES % (AUTO) 23 % (12-44); MEAN CORPUSCULAR HEMOGLOBIN 32 PG (25-34); MEAN CORPUSCULAR HGB CONC 33 G/DL (32-36); MEAN CORPUSCULAR VOLUME 99 FL (80-99); MEAN PLATELET VOLUME 8.8 FL (7.4-10.4); MONOCYTES # (AUTO) 0.4 X 10^3 (0.0-1.0); MONOCYTES % (AUTO) 5 % (0-12); NEUTROPHILS # (AUTO) 4.7 X 10^3 (1.8-7.8); NEUTROPHILS % (AUTO) 71 % (42-75); PLATELET COUNT 259 10^3/uL (130-400); RED CELL DISTRIBUTION WIDTH 13.3 % (10.0-14.5); WHITE BLOOD COUNT 6.7 10^3/uL (4.3-11.0)
[2018-07-10 05:56] LABS: ALTERNARIA MOLD RAST <0.35 kU/L (<0.35); RAGWEED RAST <0.35 kU/L (<0.35)
== END ==
LOC: LAB 09:05
PROVIDERS: ATTEND Nurse Practitioner Family
DX: R06.00 Dyspnea, unspecified (principal); J30.9 Allergic rhinitis, unspecified; R06.89 Other abnormalities of breathing; R05 Cough
CPT/HCPCS: 36415; 82785; 85025; 86003

== ENCOUNTER → 2018-09-03 | Outpatient (CLI) | payer MEDICARE, OTHER ==
--- NOTE | 2018-09-03 13:19 | Diagnostic Imaging Report ---
PROCEDURE: US Thyroid. TECHNIQUE: Multiple real-time grayscale images were obtained of the thyroid in various projections. INDICATION: Thyroid nodule. The left thyroid lobe measures 4.4 x 1.5 x 1.5 cm. There is a 13 x 6 x 8 mm cystic and solid isoechoic nodule with well-defined margins in the left lobe of the thyroid (TI-RADS 2). This is similar to prior study. No other left-sided nodules are seen. The right lobe of the thyroid measures 4.6 x 1.5 x 1.4 cm. There is a focus of calcification in the inferior right thyroid. No suspicious nodules are seen on the right. The isthmus measures 3 mm. Impression: 1. No suspicious nodules are seen. By TI-RADS criteria the left-sided nodule is not suspicious. No followup necessary. Dictated by: Dictated on workstation # [id number]
== END ==
LOC: RAD 09:53
PROVIDERS: ATTEND Otolaryngology Otolaryngology/Facial Plastic Surgery
DX: E04.1 Nontoxic single thyroid nodule (principal)
CPT/HCPCS: 76536

== ENCOUNTER → 2018-09-09 | Outpatient (CLI) | payer MEDICARE, OTHER ==
[~2018-09-09] MED LIST changes: +RT-ALBUTEROL SULF 2.5 MG/3 ML PRE-MIX VIAL INH ONE
== END ==
LOC: RT 15:40
PROVIDERS: ATTEND Nurse Practitioner Family
DX: J30.9 Allergic rhinitis, unspecified (principal)
CPT/HCPCS: 94060; 94726; 94729

== ENCOUNTER → 2019-01-10 | Outpatient (CLI) | payer MEDICARE, OTHER ==
[~2019-01-10] MED LIST changes: -RT-ALBUTEROL SULF 2.5 MG/3 ML PRE-MIX VIAL INH ONE
--- NOTE | 2019-01-10 14:14 | Diagnostic Imaging Report ---
Indication: Right breast nodule. Correlation is made with prior mammogram from 01/25/2018 and 12/07/2016. 2-D and 3-D bilateral diagnostic mammography was performed with CAD. Both breasts remain heterogeneously dense, limiting the sensitivity mammography. Biopsy clip in the upper and outer right breast mid depth is again noted. There are scattered benign calcifications bilaterally. No dominant mass or malignant-appearing microcalcifications are seen. Axillae are unremarkable. IMPRESSION: BI-RADS Category 2 No mammographic features suspicious for malignancy are identified. ACR BI-RADS Category 2: Benign findings. Result letter will be mailed to the patient. Note: At least 10% of breast cancer is not imaged by mammography. Dictated by: Dictated on workstation # [id number]
== END ==
LOC: RAD 13:43
PROVIDERS: ATTEND Pediatrics
DX: N63.10 Unspecified lump in the right breast, unspecified quadrant (principal)
CPT/HCPCS: 77066

== ENCOUNTER → 2019-07-29 | Outpatient (CLI) | payer MEDICARE, OTHER ==
--- NOTE | 2019-07-29 10:09 | Diagnostic Imaging Report ---
INDICATION: Screening for osteoporosis COMPARISON: None FINDINGS: The bone density of the hips was measured. The patient has had prior lumbar surgery and consequently the lumbar spine bone density could not be evaluated. The total T score for each hip is -1. The T score for the left femoral neck is -1.7, for the right femoral neck -1.2. All of these values indicate osteopenia. AP Spine L1-L4: [BMD (g/cm2): NA] [T-Score: NA] [Z-Score: NA] [BMD Previous: NA] [BMD % Change: NA] LT Hip Neck: [BMD (g/cm2): 0.806] [T-Score: -1.7] [Z-Score: .2] LT Hip Total: [BMD (g/cm2):0.787] [T-Score:-1.8] [Z-Score: -0.1] [BMD Previous: NA] [BMD % Change: NA] RT Hip Neck: [BMD (g/cm2):0.875] [T-Score:-1.2] [Z-Score:0.7] RT Hip Total: [BMD (g/cm2):0.782] [T-score:-1.8] [Z-Score:-0.1] [BMD Previous:NA] [BMD % Change:NA] *Indicates significant change from prior examination based on 95% confidence level. World Health Organization criteria for BMD interpretation classify patients as Normal (T-score at or above -1.0), Osteopenic (T-score between -1.0 and -2.5) or Osteoporotic (T-score at or below -2.5). LIMITATIONS AND MODIFICATION: None. FRACTURE RISK (FRAX SCORE): The ten year probability of (%): Major Osteoporotic Fracture: [16.0] Hip Fracture: [2.8] IMPRESSION: 1. The T-scores of the hips and femoral necks indicate osteopenia. 2. The bone density of the lumbar spine could not be calculated due to prior lumbar surgery. 3. See below National Osteoporosis Foundation guidelines on when to potentially initiate pharmacologic therapy. Based on the National Osteoporosis Foundation Guidelines, pharmacologic treatment should be initiated in any of the following, unless clinical conditions suggest otherwise: * Any patient with prior fragility fracture of the hip or vertebrae. A spine fracture indicates 5X risk for subsequent spine fracture and 2X risk for subsequent hip fracture. * Osteoporosis (T-score <-2.5). * Postmenopausal women and men age 50 and older with low bone mass/osteopenia (T-score between -1.0 and -2.5) by DXA and 10-year major osteoporotic fracture greater than 20% or a 10-year probability of hip fracture greater than 3%. These fracture risks are supplied above in the FRAX score, if applicable. * Clinician judgement and/or patient preferences may indicate treatment for people with 10-year fracture probabilities above or below these levels. Dictated by: Dictated on workstation # [id number]
== END ==
LOC: RAD 09:04
PROVIDERS: ATTEND Nurse Practitioner Family
DX: Z13.820 Encounter for screening for osteoporosis (principal); M81.0 Age-related osteoporosis without current pathological fracture
CPT/HCPCS: 77080

== ENCOUNTER → 2020-01-13 | Outpatient (CLI) | payer MEDICARE, OTHER ==
--- NOTE | 2020-01-13 14:17 | Diagnostic Imaging Report ---
INDICATION: Routine screening. COMPARISON: 01/10/2019 and 01/25/2018. TECHNIQUE: 2D and 3D bilateral screening mammography was performed with CAD. FINDINGS: A biopsy clip in the upper right breast is again noted. There are benign calcifications scattered throughout both breasts. No dominant mass or malignant appearing microcalcifications are seen. The axillae are unremarkable. IMPRESSION: No mammographic features suspicious for malignancy are identified. ACR BI-RADS Category 2: Benign findings. Result letter will be mailed to the patient. Note: At least 10% of breast cancer is not imaged by mammography. Dictated by: Dictated on workstation # [id number]
== END ==
LOC: RAD 10:30
PROVIDERS: ATTEND Pediatrics
DX: Z12.31 Encounter for screening mammogram for malignant neoplasm of breast (principal)
CPT/HCPCS: 77063; 77067

== ENCOUNTER → 2020-03-29 | Outpatient (CLI) | payer MEDICARE, OTHER ==
[~2020-03-29] MED LIST changes: +CATHETER FLUSH 10 ML SYR IV PRN; +HOLD METFORMIN - RECEIVED CONTRAST 20 ML VIAL IV SCH; +IOHEXOL 350 MG/ML 100 ML (OMNIPAQUE 350) VIAL IV ONE; +NS 100 ML (IVPB) BAG IV ONE
[2020-03-29 07:41] LABS: BUN/CREATININE RATIO 21; CREATININE SERUM 0.73 MG/DL (0.60-1.30); GFR ESTIMATED > 60
--- NOTE | 2020-03-29 08:36 | Diagnostic Imaging Report ---
PROCEDURE: CT angiography of the chest with contrast. TECHNIQUE: Multiple contiguous axial images were obtained through the chest after uneventful bolus administration of intravenous contrast. 3D reconstructed CTA MIP acquisitions were also performed. Auto Exposure Controls were utilized during the CT exam to meet ALARA standards for radiation dose reduction. INDICATION: Intermittent dry cough. FINDINGS: There are no intraluminal pulmonary arterial filling defects. There is no pulmonary arterial embolus. No focal consolidation. No mass, lung nodule, or lymphadenopathy. No pleural or pericardial effusion. Thoracic aorta is patent and nonaneurysmal. The visualized upper abdomen is nonacute. IMPRESSION: Negative for PE or other acute/suspicious abnormalities. Dictated by: Dictated on workstation # [id number]
== END ==
LOC: RAD 08:15
PROVIDERS: ATTEND Nurse Practitioner Family
DX: Z03.89 Encounter for observation for other suspected diseases and conditions ruled out (principal); R06.00 Dyspnea, unspecified; R05 Cough; M79.609 Pain in unspecified limb; M79.89 Other specified soft tissue disorders
CPT/HCPCS: 36415; 71275; 82565; 84520

== ENCOUNTER → 2020-04-26 | Outpatient (CLI) | payer MEDICARE, OTHER ==
[~2020-04-26] MED LIST changes: -CATHETER FLUSH 10 ML SYR IV PRN; -HOLD METFORMIN - RECEIVED CONTRAST 20 ML VIAL IV SCH; -IOHEXOL 350 MG/ML 100 ML (OMNIPAQUE 350) VIAL IV ONE; -NS 100 ML (IVPB) BAG IV ONE
== END ==
LOC: CARD 08:30
PROVIDERS: ATTEND Pediatrics
DX: R06.09 Other forms of dyspnea (principal)
CPT/HCPCS: 93306

== ENCOUNTER → 2020-10-21 | Outpatient (CLI) | payer MEDICARE, OTHER ==
--- NOTE | 2020-10-21 09:49 | Diagnostic Imaging Report ---
PROCEDURE: CT sinuses without contrast TECHNIQUE: Multiple contiguous axial images were obtained through the sinuses without the use of intravenous contrast. Coronal and sagittal reformations were then performed. Auto Exposure Controls were utilized during the CT exam to meet ALARA standards for radiation dose reduction. INDICATION: Recurrent maxillary sinusitis. COMPARISON: Maxillofacial CT without contrast 10/22/2016. FINDINGS: Minimal mucosal thickening in the floor of the left maxillary sinus posteriorly. The paranasal sinuses are otherwise clear. The ostiomeatal units and frontal recesses are patent. No large julio bullosa. Mild rightward bowing of the nasal septum. Advanced degenerative changes in the temporomandibular joints. The mastoids and middle ears are clear. Skull base is intact. Visualized intracranial contents and orbits are negative. IMPRESSION: 1. Minimal mucosal thickening in the floor of the left maxillary sinus posteriorly. The paranasal sinuses are otherwise clear. Dictated by: Dictated on workstation # [id number]
== END ==
LOC: RAD 09:15
PROVIDERS: ATTEND Pediatrics
DX: J01.01 Acute recurrent maxillary sinusitis (principal)
CPT/HCPCS: 70486

== ENCOUNTER → 2021-08-23 | Outpatient (CLI) | payer MEDICARE, OTHER ==
--- NOTE | 2021-08-23 13:58 | Diagnostic Imaging Report ---
INDICATION: Postmenopausal screening. COMPARISON: 07/29/2019 FINDINGS: AP Spine L1-L4: [BMD (g/cm2): NA] [T-Score: NA] [Z-Score: NA] [BMD Previous: NA] [BMD % Change: NA] LT Hip Neck: [BMD (g/cm2): 0.778] [T-Score: -1.9] [Z-Score: 0.1] LT Hip Total: [BMD (g/cm2):0.781] [T-Score:-1.8] [Z-Score: 0.0] [BMD Previous: 0.787] [BMD % Change: -0.8] RT Hip Neck: [BMD (g/cm2):0.848] [T-Score:-1.4] [Z-Score:0.6] RT Hip Total: [BMD (g/cm2):0.801] [T-score:-1.6] [Z-Score:0.2] [BMD Previous:0.782] [BMD % Change:2.4] *Indicates significant change from prior examination based on 95% confidence level. World Health Organization criteria for BMD interpretation classify patients as Normal (T-score at or above -1.0), Osteopenic (T-score between -1.0 and -2.5) or Osteoporotic (T-score at or below -2.5). LIMITATIONS AND MODIFICATION: None. FRACTURE RISK (FRAX SCORE): The ten year probability of (%): Major Osteoporotic Fracture: [17.5] Hip Fracture: [3.9] IMPRESSION: 1. Osteopenia (Low bone mass). 2. No significant change in bone mineral density since prior examination. 3. See below National Osteoporosis Foundation guidelines on when to potentially initiate pharmacologic therapy. Based on the National Osteoporosis Foundation Guidelines, pharmacologic treatment should be initiated in any of the following, unless clinical conditions suggest otherwise: * Any patient with prior fragility fracture of the hip or vertebrae. A spine fracture indicates 5X risk for subsequent spine fracture and 2X risk for subsequent hip fracture. * Osteoporosis (T-score <-2.5). * Postmenopausal women and men age 50 and older with low bone mass/osteopenia (T-score between -1.0 and -2.5) by DXA and 10-year major osteoporotic fracture greater than 20% or a 10-year probability of hip fracture greater than 3%. These fracture risks are supplied above in the FRAX score, if applicable. * Clinician judgement and/or patient preferences may indicate treatment for people with 10-year fracture probabilities above or below these levels. Dictated by: Dictated on workstation # [id number]
== END ==
LOC: RAD 12:09
PROVIDERS: ATTEND Pediatrics
DX: M85.80 Other specified disorders of bone density and structure, unspecified site (principal); Z78.0 Asymptomatic menopausal state
CPT/HCPCS: 77080

== ENCOUNTER → 2021-10-06 | Outpatient (CLI) | payer MEDICARE, OTHER ==
--- NOTE | 2021-10-06 16:27 | Diagnostic Imaging Report ---
PROCEDURE: MRI lumbar spine. TECHNIQUE: Multiplanar, multisequence MRI of the lumbar spine was performed without contrast. INDICATION: Back pain FINDINGS: There are postsurgical changes of an L4-S1 posterior instrumentation and as well as anterior lumbar fusion at L4-L5 and L5-S1. The vertebral body heights are well maintained. No spondylolysis or spondylolisthesis. No fractures are identified. Conus medullaris seen at L1 zone appearance. T12-L1 is unremarkable. L1-2 demonstrates disease and thickened ligamentum flavum. Slight effacement of thecal sac with minimal neural foraminal encroachment. At L2-L3, there is some annular bulging facet disease. There is minimal central spinal stenosis and minimal neural foraminal encroachment. At L3-L4 there is annular bulging facet disease and thickened of ligamentum flavum. There is severe spinal stenosis with encroachment lateral recess bilaterally and moderately severe bilateral neural foraminal encroachment. At L4-L5 there is no spinal stenosis. At L5-S1 there is no spinal neural foraminal encroachment. IMPRESSION: Degenerative and postsurgical changes in the lumbar spine as described with severe spinal stenosis at L3-L4 just above the level of the posterior instrumentation. Dictated by: Dictated on workstation # [id number]
== END ==
LOC: RAD 07:33
PROVIDERS: ATTEND Pediatrics
DX: M51.37 Other intervertebral disc degeneration, lumbosacral region (principal); M47.816 Spondylosis without myelopathy or radiculopathy, lumbar region; M48.061 Spinal stenosis, lumbar region without neurogenic claudication
CPT/HCPCS: 72148

== ENCOUNTER 2022-04-12 12:26 | Emergency (ER) | payer MEDICARE, OTHER ==
[~2022-04-12] VITALS: Ht 160 cm; Wt 57.0 kg
--- NOTE | 2022-04-12 13:17 | ED Respiratory ---
General Chief Complaint: Respiratory Problems Stated Complaint: SOB | DIZZINESS Nursing Triage Note: PT AMB TO [facility] 8 PT CO OF SOA, STATES HAS SOA AND LIGHTHEADEDNESS SINCE WEEKEND. PT IS CURRENTLY TAKING AUGMENTIN FOR COUGH AND CONGESTION. WAS SEEN IN FEB BY PULOMONOLOGIST AND PRESCRIBED PREDNISONE FOR 2 WEEKS AND HAD IMPROVEMENT. PT HAS CLEAR COUGH PROD AT TIMES. DEINIES FEVERS. Source: patient Exam Limitations: no limitations History of Present Illness Date Seen by Provider: Apr 12, 2022 Time Seen by Provider: 13:00 Initial Comments 76-year-old female presents the ED with complaints of dizziness, lightheadedness, and shortness of breath for 1 week. States she has been having a cough and runny nose which has been persistent for many years. She was seen on Sunday and given a prescription for Augmentin. She also sees a rail operations controller, and is been diagnosed with asthma and COPD. She states she was told on Sunday to come in if she still had shortness of air and dizziness to be checked for PE. She denies history of PE or DVT. She was never a smoker, COPD is due to living with a smoker. Most recent surgery was a back surgery in October 2021. Current well score for PE is 0. Denies fever, and chest pain. Allergies and Home Medications Allergies Coded Allergies: No Known Drug Allergies (Unverified , 08/16/12) Patient Home Medication List Calcium Cmb 2/D3/Min Cmb34/Gen (Citracal + Bone Density Tablet) 1 Each Tablet, 1 TAB PO DAILY, (Reported) Entered as Reported by: AARON TAYLOR on 08/16/12 0958 Cephalexin (Keflex) 500 Mg Capsule, 500 MG PO BID Prescribed by: ARMANDO RANDLE on 10/22/16 2316 Escitalopram Oxalate (Lexapro) 10 Mg Tablet, 10 MG PO DAILY, (Reported) Entered as Reported by: RONIT BOWLING on 04/14/10 0820 Hydrocodone Bit/Acetaminophen (Lortab 5 Mg Tablet) 1 Each Tablet, 1 EACH PO Q6H PRN for PAIN Prescribed by: ARMANDO RANDLE on 10/22/16 2245 Hydroxychloroquine Sulfate (Plaquenil Nf) 200 Mg Tab, 400 MG PO DAILY, (Reported) Entered as Reported by: AARON TAYLOR on 08/16/12 0958 Multivitamins (Multiple Vitamin) 1 Tab Tablet, 1 TAB PO DAILY, (Reported) Entered as Reported by: NICKI PERRY on 07/04/10 1612 Pantoprazole Sodium (Protonix) 40 Mg Tablet.dr, 1 TAB PO DAILY, (Reported) Entered as Reported by: LOLIS ELLIS on 12/08/13 1006 Simvastatin (Simvastatin) 20 Mg Tablet, 20 MG PO DAILY, (Reported) Entered as Reported by: AARON TAYLOR on 08/16/12 0958 Trazodone Hcl (Desyrel) 50 Mg Tablet, 50 MG PO HS, (Reported) Entered as Reported by: AARON TAYLOR on 08/16/12 0958 Past Wkyuapj-Ypythx-Orrnyu Hx Patient Social History Tobacco Use?: No Substance use?: No Alcohol Use?: Yes Alcohol Frequency: Once in a while Pt feels they are or have been: Yes Immunizations Up To Date Influenza Vaccine Up-to-Date: Yes; Up-to-Date First/Initial COVID19 Vaccinat: YES Second COVID19 Vaccination Juan: YES Third COVID19 Vaccination Date: YES Past Medical History Surgery/Hospitalization HX: ASTHMA, COPD, ALLERGIES, BACK SURG, HYST, ARHTROSCOPY L KNEE Respiratory: No Cardiac: No Neurological: No Reproductive Disorders: No Sexually Transmitted Disease: No Gastrointestinal: No Musculoskeletal: Yes (BACK) Endocrine: No Cancer: No Psychosocial: Yes Depression Blood Disorders: No Physical Exam Vital Signs - First Documented 04/12/22 12:31 Pulse 95 Resp 18 B/P (MAP) 164/83 (110) Pulse Ox 100 O2 Delivery Room Air Capillary Refill : Less Than 3 Seconds Height: 5'3.00" Weight: 125lbs. oz. [id number]; 22.00 BMI Method:Stated Progress/Results/Core Measures Suspected Sepsis SIRS Temperature: Pulse: 95 Respiratory Rate: 18 Laboratory Tests 04/12/22 12:35: White Blood Count 6.2 Blood Pressure 164 /83 Mean: 110 Laboratory Tests 04/12/22 12:35: Creatinine 0.75, INR Comment 0.8, Platelet Count 381, Total Bilirubin 0.3 Results/Orders Lab Results Laboratory Tests Test 04/12/22 12:35 Range/Units White Blood Count 6.2 4.3-11.0 10^3/uL Red Blood Count 3.91 3.80-5.11 10^6/uL Hemoglobin 12.6 11.5-16.0 g/dL Hematocrit 39 35-52 % Mean Corpuscular Volume 100 H 80-99 fL Mean Corpuscular Hemoglobin 32 25-34 pg Mean Corpuscular Hemoglobin Concent 32 32-36 g/dL Red Cell Distribution Width 13.6 10.0-14.5 % Platelet Count 381 130-400 10^3/uL Mean Platelet Volume 9.2 9.0-12.2 fL Immature Granulocyte % (Auto) 0 % Neutrophils (%) (Auto) 59 42-75 % Lymphocytes (%) (Auto) 31 12-44 % Monocytes (%) (Auto) 8 0-12 % Eosinophils (%) (Auto) 1 0-10 % Basophils (%) (Auto) 1 0-10 % Neutrophils # (Auto) 3.7 1.8-7.8 10^3/uL Lymphocytes # (Auto) 2.0 1.0-4.0 10^3/uL Monocytes # (Auto) 0.5 0.0-1.0 10^3/uL Eosinophils # (Auto) 0.1 0.0-0.3 10^3/uL Basophils # (Auto) 0.0 0.0-0.1 10^3/uL Immature Granulocyte # (Auto) 0.0 0.0-0.1 10^3/uL Prothrombin Time 12.0 L 12.2-14.7 SEC INR Comment 0.8 0.8-1.4 Activated Partial Thromboplast Time 28 24-35 SEC D-Dimer 0.41 0.00-0.49 UG/ML Sodium Level 140 135-145 MMOL/L Potassium Level 4.0 3.6-5.0 MMOL/L Chloride Level 103 98-107 MMOL/L Carbon Dioxide Level 25 21-32 MMOL/L Anion Gap 12 5-14 MMOL/L Blood Urea Nitrogen 10 7-18 MG/DL Creatinine 0.75 0.60-1.30 MG/DL Estimat Glomerular Filtration Rate 83 BUN/Creatinine Ratio 13 Glucose Level 160 H 70-105 MG/DL Calcium Level 9.4 8.5-10.1 MG/DL Corrected Calcium 8.5-10.1 MG/DL Magnesium Level 2.0 1.6-2.4 MG/DL Total Bilirubin 0.3 0.1-1.0 MG/DL Aspartate Amino Transf (AST/SGOT) 22 5-34 U/L Alanine Aminotransferase (ALT/SGPT) 20 0-55 U/L Alkaline Phosphatase 67 40-136 U/L Myoglobin 27.2 10.0-92.0 NG/ML Troponin I < 0.028 <0.028 NG/ML B-Type Natriuretic Peptide 14.6 <100.0 PG/ML Total Protein 7.3 6.4-8.2 GM/DL Albumin 4.6 H 3.2-4.5 GM/DL My Orders Orders - ROCAEL HENDERSON APRN Cbc With Automated Diff (04/12/22 13:11) Magnesium (04/12/22 13:11) Chest 1 View, Ap/Pa Only (04/12/22 13:11) Ekg Tracing (04/12/22 13:11) Comprehensive Metabolic Panel (04/12/22 13:11) Myoglobin Serum (04/12/22 13:11) Protime With Inr (04/12/22 13:11) Partial Thromboplastin Time (04/12/22 13:11) Monitor-Rhythm Ecg Trace Only (04/12/22 13:11) Ed Iv/Invasive Line Start (04/12/22 13:11) Bnp Jose Luis (04/12/22 13:11) Fibrin Degradation Products (04/12/22 13:11) Troponin I Jose Luis (04/12/22 13:11) Albuterol/Ipra Inhalation Soln (Duoneb I (04/12/22 14:30) Svn Small Volume Nebulizer (04/12/22 14:16) Methylprednisolone Sod Succ (Solu-Medrol (04/12/22 14:30) Medications Given in ED Current Medications Medications Dose Ordered Sig/Jenelle Route Start Time Stop Time Status Last Admin Dose Admin Methylprednisolone Sodium Succinate 125 mg ONCE ONCE IVP 04/12/22 14:30 04/12/22 14:31 DC 04/12/22 14:39 125 MG Vital Signs/I&O 04/12/22 12:31 Pulse 95 Resp 18 B/P (MAP) 164/83 (110) Pulse Ox 100 O2 Delivery Room Air Capillary Refill : Less Than 3 Seconds Blood Pressure Mean: 110 Progress Note : Time: 13:15 Progress Note Patient seen and evaluated, resting comfortably, no acute distress. ECG Initial ECG Impression Date: Apr 12, 2022 Initial ECG Impression Time: 13:27 Initial ECG Rate: 81 Initial ECG Rhythm: Normal Sinus Initial ECG Intervals: Normal Initial ECG Impression: Normal Initial ECG Comparisson: Unchanged Departure Impression Primary Impression: Shortness of breath Disposition: 01 HOME, SELF-CARE Condition: Stable Departure-Patient Inst. Decision time for Depature: 15:14 Referrals: JT BLACKMAN MD (PCP/Family) Primary Care Physician Patient Instructions: Shortness of Breath, Adult ED Add. Discharge Instructions: Take prednisone 1 dose daily for 4 days. Use the DuoNeb breathing treatments as needed for shortness of breath. Follow-up with your primary care provider. Return for worsening shortness of breath, chest pain, or any other new, concerning, or worsening symptoms. All discharge instructions reviewed with patient and/or family. Voiced understanding. Scripts Ipratropium/Albuterol Sulfate (Iprat-Albut 0.5-3(2.5) mg/3 ml) 0.5 Mg-3 Mg (2.5 Mg Base)/3 Ml Ampul.neb 3 ML IH Q4H PRN for SHORTNESS OF BREATH, #28 EACH 0 Refills Prov: ROCAEL HENDERSON APRN 04/12/22 Prednisone (Prednisone) 50 Mg Tab 50 MG PO DAILY, #4 TAB 0 Refills Prov: ROCAEL HENDERSON APRN 04/12/22 ROCAEL HENDERSON APRN Apr 12, 2022 13:17
[2022-04-12 13:22] LABS: ALBUMIN 4.6 GM/DL (3.2-4.5); BASOPHILS % (AUTO) 1 % (0-10); CHLORIDE 103 MMOL/L (98-107); EOSINOPHILS # (AUTO) 0.1 10^3/uL (0.0-0.3); EOSINOPHILS % (AUTO) 1 % (0-10); HEMATOCRIT 39 % (35-52); HEMOGLOBIN 12.6 g/dL (11.5-16.0); LYMPHOCYTES % (AUTO) 31 % (12-44); MEAN CORPUSCULAR HEMOGLOBIN 32 pg (25-34); MEAN CORPUSCULAR HGB CONC 32 g/dL (32-36); MEAN CORPUSCULAR VOLUME 100 fL (80-99); MEAN PLATELET VOLUME 9.2 fL (9.0-12.2); MONOCYTES # (AUTO) 0.5 10^3/uL (0.0-1.0); MONOCYTES % (AUTO) 8 % (0-12); NEUTROPHILS # (AUTO) 3.7 10^3/uL (1.8-7.8); NEUTROPHILS % (AUTO) 59 % (42-75); PLATELET COUNT 381 10^3/uL (130-400); SODIUM 140 MMOL/L (135-145); WHITE BLOOD COUNT 6.2 10^3/uL (4.3-11.0)
[2022-04-12 13:23] LABS: CALCIUM 9.4 MG/DL (8.5-10.1)
[2022-04-12 13:24] LABS: GLUCOSE 160 MG/DL (70-105); TOTAL PROTEIN 7.3 GM/DL (6.4-8.2)
[2022-04-12 13:25] LABS: CARBON DIOXIDE 25 MMOL/L (21-32)
[2022-04-12 13:26] LABS: BILIRUBIN,TOTAL 0.3 MG/DL (0.1-1.0)
[2022-04-12 13:27] LABS: ALKALINE PHOSPHATASE 67 U/L (40-136)
[2022-04-12 13:28] LABS: CREATININE SERUM 0.75 MG/DL (0.60-1.30); GFR ESTIMATED 83; INR 0.8 (0.8-1.4)
[2022-04-12 13:29] LABS: BUN/CREATININE RATIO 13
[2022-04-12 13:31] LABS: ALANINE AMINOTRANSFERASE 20 U/L (0-55)
--- NOTE | 2022-04-12 14:05 | Diagnostic Imaging Report ---
INDICATION: Shortness of air, lightheadedness. FINDINGS: No focal consolidation, failure, effusion, or pneumothorax. IMPRESSION: Unremarkable frontal chest. Dictated by: Dictated on workstation # [id number]
[2022-04-12] MEDS ORDERED: RT-ALBUTEROL/IPRATROPIUM 3 ML (DUONEB) VIAL INH ONE (14:30)
[2022-04-12] MEDS ORDERED: methylPREDNISolone 125 MG (Solu-MEDROL) VIAL IVP ONE (14:30)
[2022-04-12] MEDS ORDERED: PRD50T PO (15:15)
[2022-04-12] MEDS ORDERED: IPRA3AMP31 IH (15:15)
[2022-04-12 15:25] VITALS: BP 136/72
== END 2022-04-12 15:25 | disposition home or self-care (01) ==
LOC: EDUNIT# 12:26 → ER 12:27
DX: R06.02 Shortness of breath (principal)
CPT/HCPCS: 36415; 71045; 80053; 83735; 83874; 83880; 84484; 85025; 85379; 85610; 85730; 93005

== ENCOUNTER 2022-08-02 05:51 | Outpatient (CLI) | payer MEDICARE, OTHER ==
[~2022-08-02] VITALS: Ht 162.6 cm; Wt 57.4 kg
[~2022-08-02 05:51] MED LIST changes: +IPRA3AMP31 IH; +PRD50T PO
[2022-08-02 10:31] VITALS: BP 108/58
[2022-08-02 11:26] LABS: BILIRUBIN,URINE NEGATIVE (NEGATIVE); CLARITY,URINE CLEAR; COLOR,URINE YELLOW; GLUCOSE, URINE (UA) NEGATIVE (NEGATIVE); KETONES,URINE NEGATIVE (NEGATIVE); LEUKOCYTE ESTERASE ,URINE TRACE (NEGATIVE); NITRITE,URINE NEGATIVE (NEGATIVE); PROTEIN,URINE TRACE (NEGATIVE)
[2022-08-02 11:28] LABS: BASOPHILS % (AUTO) 1 % (0-10); EOSINOPHILS # (AUTO) 0.1 10^3/uL (0.0-0.3); EOSINOPHILS % (AUTO) 1 % (0-10); HEMATOCRIT 38 % (35-52); HEMOGLOBIN 12.4 g/dL (11.5-16.0); LYMPHOCYTES # (AUTO) 1.8 10^3/uL (1.0-4.0); LYMPHOCYTES % (AUTO) 28 % (12-44); MEAN CORPUSCULAR HEMOGLOBIN 33 pg (25-34); MEAN CORPUSCULAR HGB CONC 33 g/dL (32-36); MEAN CORPUSCULAR VOLUME 101 fL (80-99); MEAN PLATELET VOLUME 9.1 fL (9.0-12.2); MONOCYTES # (AUTO) 0.5 10^3/uL (0.0-1.0); MONOCYTES % (AUTO) 8 % (0-12); NEUTROPHILS % (AUTO) 62 % (42-75); PLATELET COUNT 319 10^3/uL (130-400); WHITE BLOOD COUNT 6.5 10^3/uL (4.3-11.0)
[2022-08-02 11:37] LABS: ALBUMIN 4.6 GM/DL (3.2-4.5); CHLORIDE 104 MMOL/L (98-107); POTASSIUM 3.8 MMOL/L (3.6-5.0); SODIUM 142 MMOL/L (135-145)
[2022-08-02 11:38] LABS: BACTERIA,URINE TRACE /HPF
[2022-08-02 11:39] LABS: CALCIUM 9.8 MG/DL (8.5-10.1); INR 0.9 (0.8-1.4); PROTHROMBIN TIME PATIENT 12.2 SEC (12.2-14.7)
[2022-08-02 11:40] LABS: GLUCOSE 115 MG/DL (70-105); RBC,URINE RARE /HPF
[2022-08-02 11:41] LABS: CARBON DIOXIDE 27 MMOL/L (21-32)
[2022-08-02 11:42] LABS: BILIRUBIN,TOTAL 0.4 MG/DL (0.1-1.0)
[2022-08-02 11:43] LABS: ALKALINE PHOSPHATASE 59 U/L (40-136); GFR ESTIMATED 91
[2022-08-02 11:44] LABS: BUN/CREATININE RATIO 23
[2022-08-02 11:46] LABS: ALANINE AMINOTRANSFERASE 15 U/L (0-55)
[2022-08-02 12:03] LABS: ERYTHROCYTE SEDIMENTATION RATE 16 MM/HR (0-30)
--- NOTE | 2022-08-02 12:44 | Diagnostic Imaging Report ---
EXAMINATION: Chest 2 view HISTORY: PREOP COMPARISON: 04/12/2022 FINDINGS: Heart size and pulmonary vasculature are normal. The lungs are clear without consolidation, pleural effusion, or pneumothorax. The osseous structures are intact. IMPRESSION: 1. No acute radiographic abnormality in the chest. Dictated by: Dictated on workstation # [id number]
[2022-08-02] MEDS ORDERED: FERR-84 PO (12:45)
[2022-08-02] MEDS ORDERED: POTA-177 PO (12:45)
[2022-08-02] MEDS ORDERED: NFIPRATRNS NS (12:45)
[2022-08-02] MEDS ORDERED: LATA7.5D OP (12:45)
[2022-08-02] MEDS ORDERED: VIT1CAPS5 PO (12:45)
[2022-08-02] MEDS ORDERED: CYAN250010 PO (12:45)
[2022-08-02] MEDS ORDERED: IBUP-1773 PO (12:45)
[2022-08-02] MEDS ORDERED: ALBU8.5H6 (12:45)
[2022-08-02] MEDS ORDERED: TRZ50T PO (12:45)
[2022-08-02] MEDS ORDERED: MONT-47 PO (12:45)
[2022-08-02] MEDS ORDERED: CYCL1DRO OP (12:45)
[2022-08-02] MEDS ORDERED: FLUT1BLS15 IH (12:45)
[2022-08-02] MEDS ORDERED: NF-METANX PO (12:45)
[2022-08-02] MEDS ORDERED: ALEN70TA85 PO (12:45)
[2022-08-02] MEDS ORDERED: BIOT10004 PO (12:45)
[2022-08-02] MEDS ORDERED: ALPR0.25 PO (12:45)
[2022-08-02] MEDS ORDERED: TIMO1DRO OP (12:45)
[2022-08-02] MEDS ORDERED: ACET325T38 PO (12:45)
--- NOTE | 2022-08-02 16:02 | Physical Therapy Ortho Eval ---
PT Orthopedic Evaluation Type of Surgery LTKA Prior Level of Function Current Living Status: Alone Locomotion (Upon Admit): Straight Cane Established Durable Medical Eq: Front Wheeled Walker, Straight Cane Subjective Subjective Patient rates pain in left knee at 6-7/10 currently. Reports she lives alone and has a cane and FWW already. Entry Into Home: Stairs Without Railing Steps Into Home: 2 Motor Control Motor Control: Motor Control WNL ROM ROM: WFL Strength Strength: WFL Transfer SCALE: Activities may be completed with or without assistive devices. 2-Nbncfmgume-xbncchf completes the activity by him/herself with no assistance from a helper. 5-Set-up or Clean-up Assistance-helper sets up or cleans up; patient completes activity. [place] assists only prior to or following the activity. 4-Supervision or Touching Assistance-helper provides verbal cues and/or touching/steadying and/or contact guard assistance as patient completes acti vity. Assistance may be provided throughout the activity or intermittently. 3-Partial/Moderate Assistance-helper does LESS THAN HALF the effort. [place] lifts, holds or supports trunk or limbs, but provides less than half the effort. 2-Substantial/Maximal Assistance-helper does MORE THAN HALF the effort. [place] lifts or holds trunk or limbs and provides more than half the effort. 2-Qbdjsfdrx-ejlioe does ALL the effort. Patient does none of the effort to complete the activity. Or, the assistance of 2 or more helpers is required for the patient to complete the activity. If activity was not attempted, code reason: 7-Patient Refused. 9-Not Applicable-not attempted and the patient did not perform the activity before the current illness, exacerbation or injury. 10-Not Attempted due to Environmental Limitations-(lack of equipment, weather restraints, etc.). 88-Not Attempted due to Medical Conditions or Safety Concerns. Transfers (B, C, W/C) (QC): 6 Gait Gait Assistive Device: FWW Right Lower Extremity: Right Weight Bearing Status RLE: Full Weight Bearing Left Lower Extremity: Left Weight Bearing Status LLE: Full Weight Bearing Gait (QC): 6 Distance: 200 feet Stairs #of Steps: 2 Walking Assistive Device: Cane Treatment Rendered Exercise Instruction: Quad Sets, Straight Leg Raise, Heel Slides Assessment/Goals Goal Time Frame: 1 Visit Understands HEP: Yes Safe Ambulation: Yes Plan Treatment Plan: Discharge PT/Family Agrees to Plan: Yes Time Time In: 1030 Time Out: 1042 Total Billed Treatment Time: 12 Billed Treatment Time Visit, LATRICIA HONEYCUTT PT Aug 02, 2022 16:02
== END 2022-08-03 13:41 ==
LOC: PREOP 05:51
PROVIDERS: ATTEND Orthopaedic Surgery
DX: Z01.818 Encounter for other preprocedural examination (principal); M17.12 Unilateral primary osteoarthritis, left knee
CPT/HCPCS: 36415; 71046; 80053; 81000; 82308; 85025; 85610; 85652; 86850; 86900; 86901; 87081; 87088; 93005

== ENCOUNTER 2022-08-09 05:56 | Inpatient (IN) | payer MEDICARE, OTHER ==
--- NOTE | 2022-08-02 08:17 | HISTORY AND PHYSICAL ---
Date of service, surgery and admission will be 08/09/2022 for left total knee arthroplasty. The patient will require regular inpatient admission due to need for pain management, physical therapy and gait abnormalities. HISTORY: The patient is a 76-year-old female with longstanding progressive left knee pain. Radiographs reveal severe tricompartmental osteoarthritis. She has undergone treatment with injections in the past as well as home exercises and anti-inflammatories. Due to functional impairment and failure to improve with conservative measures, the patient has elected to proceed with surgical intervention. REVIEW OF SYSTEMS: No chest pain, no shortness of breath. No dysuria. PAST MEDICAL HISTORY: Osteoarthritis, depression, hypercholesterolemia, cough. PAST SURGICAL HISTORY: , lumbar spine x5, left knee arthroscopy, bilateral feet. FAMILY HISTORY: Significant for dementia, ischemic heart disease. PRIMARY CARE PROVIDER: Dr. Phelps at [facility]. MEDICATIONS: Vitamin B12, Restasis, Fosamax, multivitamin, Lexapro, timolol, simvastatin, Xalatan, trazodone, iron, tramadol, alprazolam, albuterol, ipratropium bromide, prednisone, Singulair. ALLERGIES: NO KNOWN DRUG ALLERGIES. SOCIAL HISTORY: The patient drinks alcohol occasionally. Denies tobacco use. PHYSICAL EXAMINATION: GENERAL: The patient is well-developed, well-nourished, in no acute distress. HEENT: Normocephalic, atraumatic. Pupils equal, round, reactive. Lateral oropharynx is clear. NECK: Supple. No lymphadenopathy. LUNGS: Clear to auscultation bilaterally. HEART: Regular rate and rhythm. ABDOMEN: Soft, nontender, nondistended. EXTREMITIES: The left knee demonstrates a moderate effusion. She is tender along medial joint line. She has pain medially with Kameron's. Range of motion is 0/3/120. There is no varus or valgus laxity. Negative anterior and posterior drawer. No skin lesions noted. IMPRESSION: Severe left knee osteoarthritis, unresponsive to conservative measures. PLAN: Left total knee arthroplasty. The risks, benefits, options, ramifications and recovery have been discussed at length with the patient. She understands and wishes to proceed. This will be for inpatient admission on 08/09/2022. Job ID: [id number] DocumentID: [id number] Dictated Date: 07/21/2022 10:50:13 Senior Treasury Consultant Date: 07/21/2022 12:08:00 Dictated By: KERMIT VALENCIA MD
[2022-08-09] VITALS (13 sets, daily range): BP systolic 118–155; BP diastolic 57–97
[~2022-08-09] VITALS: Ht 162.6 cm; Wt 69.7 kg
[~2022-08-09 05:56] MED LIST changes: +ACET325T38 PO; +ALBU8.5H6 INH; +ALEN70TA85 PO; +ALPR0.25 PO; +BIOT10004 PO; +CYAN250010 PO; +CYCL1DRO OU; +FERR-84 PO; +FLUT1BLS15 IH; +IBUP-1773 PO; +LATA7.5D OP; +MONT-47 PO; +NF-METANX PO; +NFIPRATRNS NSEACH; +POTA-177 PO; +TIMO1DRO OP; +TRZ50T PO; +VIT1CAPS5 PO
--- OUTSIDE RECORDS SUMMARY | 2022-08-09 06:01 | XMS REPORT ---
Author Author [facility] Address Unknown Phone Unavailable Care Team Providers Care Ordnance Truck Installation Mechanic Name Role Phone JT BLACKMAN Unavailable PROBLEMS Type Condition ICD9-CM Code WEE19-FK Code Onset Dates Condition S tatus W/U Status Risk SNOMED Code Notes Problem Hyperlipidemia, unspecified hyperlipidemia type E78.5 confirmed 81465121 Problem Thyroid nodule E04.1 confirmed [id number] Chew Problem Breast nodule N63.0 confirmed 667028 03 Problem Osteoarthritis of multiple joints, unspecified o steoarthritis type M15.9 confirmed [id number] Problem Age-related osteoporosis without current pathological fracture M81.0 confirmed 43285338 Problem Systemic involvement of connective tissue, unspecified M35.9 confirmed 724650935 Problem Degeneration of lumbar or lumbosacral intervertebral disc M51.37 confirmed 20967387 Problem Chronic sinusitis, unspecified J32.9 confir med 83791867 Problem Major depressive disorder, recurrent, in full remission F33.42 confirmed 40954943 Problem Chronic rhinitis J31.0 confirmed 897 199949 Problem Chronic allergic rhinitis J30.9 confirmed 40331505 Problem History of foot fracture Z87.81 confirmed 664366323 Problem Localized osteoarthritis of left knee M17.12 confirmed [id number] Problem COPD exacerbation J44.1 confirmed 19 1555563 Problem Mild intermittent asthma, unspecified whether complicated J45.20 confirmed [id number] ALLERGIES No Known Allergies ENCOUNTERS from 1945 to 2022-07-03 Encounter Location Date Provider Diagnosis [facility] [id number] [place] [phone] June, JT BLACKMAN Major depressive disorder, recurrent, in full remission F33.42 ; Encounter for Medicare annual wellness exam Z00.00 ; Restrictive lung disease J98.4 ; Hyperlipidemia, unspecified hyperlipidemia type E78.5 ; Chronic allergic rhinitis J30.9 and Colon cancer screening Z12.11 IMMUNIZATIONS Vaccine Route Administration Date Status PRIVATE TDAP (BOOSTRIX) IM Intramuscular July 21, 2017 Adminis tered PRIVATE PCV 13 (PREVNAR) Unknown Dec 14, 2014 Adminis tered PRIVATE PPSV23 (PNEUMOVAX) Unknown Jan 15, 2012 Admin istered PRIVATE PPSV23 (PNEUMOVAX) IM Intramuscular Nov 27, 2011 Admi nistered PRIVATE SHINGRIX (HERPES ZOSTER-2 DOSE) IM Intramuscular July Administered FLUZONE HIGH DOSE (65 AND UP) 2016 IM Intramuscular Dec 07, 2016 Administered FLUZONE HIGH DOSE 65 AND UP 2015 IM Intramuscular Jan 21, 2016 Administered PRIVATE FLULAVAL QUAD 0.5ML (6 MO AND UP) 2018 IM Intramuscular Dec 10, 2018 Administered 2nd Booster MODERNA COVID-19, mRNA, 0.25mL IM Intramuscular Oct 21, 2021 Administered PRIVATE SHINGRIX (HERPES ZOSTER-2 DOSE) IM Intramuscular Oct 13, 2019 Administered STATE FUNDED PPSV23 (PNEUMOVAX) IM Intramuscular Dec 30, 2018 Administered PRIVATE HIGH DOSE FLU 22-23 (FLUZONE HD) AGE 65YRS AND UP IM Intramuscular Jan 05, 2022 Administered Booster HRSA MODERNA, COVID-19, 0.25mL IM Intramuscular Dec 21, 2020 Administered PRIVATE FLUZONE HIGH DOSE QUAD 0.7ML (65 and UP) 2020 IM Int ramuscular Dec 15, 2020 Administered COVID-19 Moderna (history) Unknown Apr 22, 2020 Admin istered COVID-19 Moderna (history) Unknown Mar 25, 2020 Admin istered PRIVATE FLULAVAL QUAD 0.5ML (6 MO AND UP) 2019 IM Intramuscular Dec 17, 2019 Administered SOCIAL HISTORY Sex Assigned At : Social History Observation Description Sex Assigned At Unknown Alcohol Screen (Audit-C) Question Answer Notes Did you have a drink containing alcohol in the past year? Ye s Points 2 Interpretation Negative How often did you have 6 or more drinks on one occasio n in the past year? Less than monthly (1 point) How many drinks did you have on a typica l day when you were drinking in the past year? 1 or 2 (0 points) How often did you have a drink containing alcohol in t he past year? Monthly or less (1 point) PHQ2 Question Answer Notes In the last 2 weeks, how often have you had little interest or pleasure in doing things? Not at all In the last 2 weeks, how often have you been feeling down, depressed, or hopeless? Not at all Total PHQ2 Score 0 REASON FOR REFERRAL No Information VITAL SIGNS Height 64 in June, Height-cm 162.56 cm June, Weight 129.9 lbs June, Weight-kg 58.92 kg June, Temperature 97.4 degrees Fahrenheit June, Heart Rate 82 bpm June, Respiratory Rate 18 bpm June, Oximetry 96 % June, BMI 22.29 kg/m2 June, Blood pressure systolic 122 mmHg June, Blood pressure diastolic 78 mmHg June, MEDICATIONS Medication SIG (Take, Route, Frequency, Duration) Notes Start Da te End Date Status Timolol Maleate 0.25 % 1 drop into affected eye Ophthalmic Once a day Active Xanax 0.25 MG 1 tablet Orally once daily as needed prn Aug, Active Singulair 10 MG 1 tablet Orally Once a day Active Biotin 3,000mcg Active traMADol HCl 50 MG 1 tablet as needed Orally twice a day for 30 days prn Dec, Active Cerefolin NAC 6-90.314-2-600 MG 1 tablet Orally Once a day Active Albuterol Sulfate HFA 108 (90 Base) MCG/ACT INHALE TWO PUFFS BY MOUTH EVERY 4 HOURS NEEDED for 30 days Acti ve Trelegy Ellipta 200-62.5-25 mcg/act 1 puff Inhalation Once a day for 28 days Active D98-Xglyir 1 MG as directed Orally A ctive Citracal Plus - Orally Active Potassimin 75 MG 1 tablet Orally Once a day for 30 day(s) PRN Active Multivitamin - 1 tablet Orally Once a day Active Ipratropium-Albuterol 0.5-2.5 (3) MG/3ML 3 mL as neede d Inhalation every 6 hrs for 30 days bai gilliam as we are waiting on PA. Mar, Active Restasis 0.05 % 1 drop into affected eye Ophthalmic Twic e a day post cataract surgery - rx by Dr. Child Active traZODone HCl 50 MG TAKE ONE TABLET BY MOUTH bertin ry night AT BEDTIME NEEDED for 30 days Active Mometasone Furoate 50 MCG/ACT instill TWO SPRAYS IN EACH NOSTRIL DAILY for 30 Active PreserVision AREDS - 2 tablets Orally Active Tylenol 325 MG 1 tablet as needed Orally every 4 hrs prn Active Ipratropium [place] 0.06 % 2 sprays in each nostril Na daniel Three times a day for 30 days Apr, Active Iron 325 (65 Fe) MG 1 tablet Once a day prn Active Simvastatin 20 mg 1 tablet Orally at bedtime for 90 days Active Mucinex 600 MG 1 tablet as needed Orally every 12 hrs Active Alendronate Sodium 70 mg TAKE 1 TABLET BY MOUTH 30 LA NUTES BEFORE THE FIRST FOOD, BEVERAGE OR MEDICINE OF THE DAY WITH PLAIN WATER ONCE A WEEK. NEED APPOINTMENT IN 90 DAYS for 90 days Active Escitalopram Oxalate 10 mg TAKE 1 TABLET BY MOUTH ONCE DAILY 30 days for 30 days Active Ibuprofen 200 MG as directed Orally PRN Active Coricidin HBP 10-325-2 MG 2 tablets every 4 hours as n eeded Orally Five times a day Active Latanoprost 0.005 % 1 drop into affected eye in the evening Ophthalmic Once a day for 90 days Active PROCEDURES No Information RESULTS No Results REASON FOR VISIT Medicare AWV-[place], colonoscopy due -[place], pdm and contract due -milla robin ma MEDICAL (GENERAL) HISTORY Type Description Date Medical History Arthritis Medical History Pre- Glaucoma Medical History asthma Medical History Osteopenia with h/o right wrist fracture Surgical History Left knee scoped Surgical History Multiple back surgeries Surgical History orthopedic surgery Surgical History Cataract surgery - right eye 11/28/2017 Surgical History Cataract surgery-left eye 05/2018 Surgical History Lumbar spine sx. 2021 Surgical History Lumbar Sx 2021 Hospitalization History Surgeries Hospitalization History Garcia on legs Hospitalization History back sx. 2021 Hospitalization History [facility] sob 04/20 Goals Section No Information Health Concerns No Information MEDICAL EQUIPMENT No Information MENTAL STATUS No Information FUNCTIONAL STATUS No Information ASSESSMENTS Encounter Date Diagnosis Assessment Notes Treatment Notes Treatm ent Clinical Notes June, Encounter for Medicare annual wellness e xam (ICD-10 - Z00.00) June, Major depressive disorder, r ecurrent, in full remission (ICD-10 - F33.42) June, Restrictive lung disease (ICD-10 - J98.4 ) June, Hyperlipidemia, unspecified hyperlipidem ia type (ICD-10 - E78.5) June, Chronic allergic rhinitis (ICD-10 - J30. 9) June, Colon cancer screening (ICD-10 - Z12.11) PLAN OF TREATMENT Medication Medication Name Sig Start Date Stop Date Escitalopram Oxalate 10 mg TAKE 1 TABLET BY MOUTH ONCE DAILY 30 days for 30 days Latanoprost 0.005 % 1 drop into affected eye in the evening Ophthalmic Once a day for 90 days traZODone HCl 50 MG TAKE ONE TABLET BY MOUTH bertin ry night AT BEDTIME NEEDED for 30 days Alendronate Sodium 70 mg TAKE 1 TABLET BY MOUTH 30 LA NUTES BEFORE THE FIRST FOOD, BEVERAGE OR MEDICINE OF THE DAY WITH PLAIN WATER ONCE A WEEK. NEED APPOINTMENT IN 90 DAYS for 90 days Trelegy Ellipta 200-62.5-25 mcg/act 1 puff Inhalation Once a day for 28 days Ipratropium [place] 0.06 % 2 sprays in each nostril Na daniel Three times a day for 30 days Apr, Pending Tests Test Name Order Date AMANDEEP PEÑA (OUTSIDE ORDER) 2020-07-21 Next Appt Details 1 Year Reason:AWV Follow Up:1 YearAWV Insurance Providers Payer Name Payer Address Payer Phone Insured Name Patient Relati onship to Insured Coverage Start Date Coverage End Date Subscriber Number Group Nu mber NGS MEDICARE Part A [address] [facility] [phone] Mirella Dickerson Self - patient is the insured [id number] [facility] PART A [address] [facility] [address] Mirella Dickerson Self - patient is the insured [id number] [employer] [facility] [address] [address] [facility] [phone] Mirella Dickerson Self - patient is the insured [id number] MEDICATIONS ADMINISTERED Medication Instructions Date of Administration Dosage DEPO MEDROL 40 MG/ML Nov, 40 mg DEXAMETHASONE 4MG/ML (PER 1 ML) Nov, 4 mg
--- OUTSIDE RECORDS SUMMARY | 2022-08-09 06:01 | XMS REPORT | Clinical Summary ---
Author Author [facility] Address Unknown Phone Unavailable Care Team Providers Care Distance Learning Administrator Name Role Phone PCP Unavailable Allergies No known active allergies Medications End Date Status Medication Sig Dispensed Refills Start Date Active traZODone (DESYREL) 50 MG Take 50 mg by 0 tablet mouth nightly. Active escitalopram (LEXAPRO) 10 Take 10 mg by 0 MG tablet mouth daily. Active hydroxychloroquine Take by mouth 0 (PLAQUENIL) 200 MG tablet daily. Active simvastatin (ZOCOR) 20 MG Take 20 mg by 0 tablet mouth nightly. Active pantoprazole (PROTONIX) Take 40 mg by 0 40 MG tablet mouth daily. Active Problems Not on file Social History Date Tobacco Use Types Packs/Day Years Used Smoking Tobacco: Never Assessed Comments Alcohol Use Standard Drinks/Week occasionally Yes 0 (1 standard drink = 0.6 o z pure alcohol) Date Recorded Sex and Gender Information Value Sex Assigned at Not on file Gender Identity Not on file Sexual Orientation Not on file Last Filed Vital Signs Reading Time Taken Comments Vital Sign 138/77 05/02/2014 11:57 AM PATIENT SERVICES ASSISTANT Blood Pressure 88 05/02/2014 11:57 AM PATIENT SERVICES ASSISTANT Pulse 36.8 C (98.3 F) 05/02/2014 9:09 AM PATIENT SERVICES ASSISTANT Temperature 18 05/02/2014 11:57 AM PATIENT SERVICES ASSISTANT Respiratory Rate 100% 05/02/2014 11:57 AM PATIENT SERVICES ASSISTANT Oxygen Saturation - - Inhaled Oxygen Concentration 58.1 kg (128 lb) 05/02/2014 9:09 AM PATIENT SERVICES ASSISTANT Weight 162.6 cm (5' 4") 05/02/2014 9:09 AM PATIENT SERVICES ASSISTANT Height 21.97 05/02/2014 9:09 AM PATIENT SERVICES ASSISTANT Body Mass Index Plan of Treatment Health Maintenance Due Date Last Done Comments DEXA Scan 1945 COVID-19 Vaccine (#1) 05[birth year]25/1946 Annual Wellness Visit 11/25/1965 Hepatitis C Screening 11/25/1965 DTaP,Tdap,and Td Vaccines 11/25/1966 (1 - Tdap) Colon Cancer Screening 11/25/1992 Breast Cancer 11/25/1997 Screening-Mammogram Zoster Vaccine (1 of 2) 11/25/1997 Pneumo-Vaccine: 65+Yrs (1 11/25/2012 - PCV) Influenza Vaccine (Season 10/27/2022 Ended) HIB Vaccines Aged Out No longer eligible based on patient's age to complete this topic IPV Vaccines Aged Out No longer eligible based on patient's age to complete this topic Meningococcal Vaccine Aged Out No longer eligib le based on patient's age to complete this topic Rotavirus Vaccines Aged Out No longer eligible based on patient's age to complete this topic Results Not on filefrom Last 3 Months Insurance Type Payer Benefit Subscriber ID Effective Phone Address Plan / Dates Group Medicare MEDICARE MEDICARE [id number] 2012-P [address] [place] [address] [employer] [id number] 2014-P [address] [place] [address]
[2022-08-09] MEDS ORDERED: fentaNYL INJ 100 MCG/2 ML AMP ONE (06:58)
[2022-08-09] MEDS ORDERED: MIDAZOLAM 2 MG/2 ML (VERSED) VIAL ONE (06:58)
[2022-08-09] MEDS ORDERED: ONDANSETRON 4 MG/2 ML (SDV) Z0FRAN ONE (07:00)
[2022-08-09] MEDS ORDERED: proPOfol 200 MG/20 ML (DIPRIVAN) VIAL IV ONE (07:00)
[2022-08-09] MEDS: LACTATED RINGERS 1,000 ML IV PRN ×2 (07:08→08:46)
[2022-08-09] MEDS ORDERED: morphine INJ 4 MG/ML 1 ML (VIAL/SYRINGE) IVP PRN (07:15)
[2022-08-09] MEDS ORDERED: NALOXONE 0.4 MG/ML 1 ML (NARCAN) VIAL IV PRN (07:15)
[2022-08-09] MEDS ORDERED: diphenhydrAMINE 50 MG/ML INJ (BENADRYL) IVP PRN (07:15)
[2022-08-09] MEDS ORDERED: ONDANSETRON 4 MG/2 ML (SDV) Z0FRAN IVP PRN ×2 (07:15→09:15)
[2022-08-09] MEDS ORDERED: CEFUROXIME 1.5 GM/15 ML (ZINACEF) VIAL ONE (07:17)
[2022-08-09] MEDS ORDERED: NS (IVPB) 50 ML ONE (07:17)
[2022-08-09] MEDS ORDERED: CELE50CA PO (07:35)
[2022-08-09] MEDS ORDERED: GBPN600T PO (07:35)
--- NOTE | 2022-08-09 07:35 | D/C HH Face to Face Order ---
D/C Face to Face Orders Reconcile Patient Problems Problems Reviewed?: Yes Instructions for Patient Via [facility] [employer], Patient Instructions/FollowUp: three weeks Physician to follow Patient: three weeks Discharge Diet for Home: Regular Diet Patient Data-Allergies,Ht & Wt Patient Allergies: Coded Allergies: No Known Drug Allergies (Unverified , 08/02/22) Height (Feet): 5 Height (Inches): 3.00 Weight (Pounds): 125 Home Health Need/Face to Face Date of Face to Face: Aug 09, 2022 Clinical Findings: Muscle weakness, Pain with ambulation, Unsteady gait I have seen Pt [id number]: Yes Discharged To: Home Diagnosis/Conditions: left total knee arthroplasty Patient is Homebound due to: Muscle weakness, Pain w/ambulation Homebound Status Due to the above stated illness, injury or surgical procedure (medical condition or diagnosis) and associated clinical findings, the patient is homebound because of his/her inability to leave home except with aid of a supportive device and/or person AND leaving the home requires a considerable and taxing effort or is medically contraindicated. Pt req the following assistanc: [facility] Nursing Orders Home Health Services Order: Physical Therapy-Evaluate & Treat DC left knee tara and apply steri strips 08/23/22 Therapy Orders Therapy Orders: Physical Therapy, PT to assess for OT Therapy Specific Orders: Eval assistive deivces, Teach enviro modifications/safety, Gait training, Increase strength/endurance, Provider maintenance therapy, Restore ROM Certify Stmt I certify that this patient is under my care and that I, a nurse practitioner or a physician; a front office medical assistant working with me, had a face to face encounter that - meets the physician face to face encounter requirements with this patient as dated. KERMIT VALENCIA MD Aug 09, 2022 07:35
--- NOTE | 2022-08-09 07:38 | Progress Note-Pre Operative ---
Pre-Operative Progress Note Date of Available H&P: Aug 02, 2022 Date H&P Reviewed: Aug 09, 2022 Time H&P Reviewed: 07:11 Changes from last HP none Pre-Operative Diagnosis: left knee primary osteoarthritis KERMIT VALENCIA MD Aug 09, 2022 07:38
--- NOTE | 2022-08-09 07:39 | Progress Note-Post Operative ---
Post-Operative Progess Note Surgeon (s)/Sql Developer Dba (s) Surgeon KERMIT VALENCIA MD Sql Developer Dba: Nilesh Worrell Pre-Operative Diagnosis left knee primary osteoarthritis Post-Operative Diagnosis left knee primary osteoarthritis Procedure & Operative Findings Date of Procedure 08/09/22 Procedure Performed/Findings left total knee arthroplasty Anesthesia Type GETA Estimated Blood Loss Estimated blood loss (mL): minimal Specimens/Packing Specimens Removed none Packing: none KERMIT VALENCIA MD Aug 09, 2022 07:39
[2022-08-09] MEDS ORDERED: TRANEXAMIC ACID 100 MG/ML 10 ML INJECTION ONE (07:40)
[2022-08-09] MEDS ORDERED: CEFUROXIME INJECTION 1,500 MG in NS (IVPB) 50 ML IV ONE (07:45)
[2022-08-09] MEDS ORDERED: ROPIVACAINE 5MG/ML 30ML VIAL ONE (07:49)
[2022-08-09] MEDS ORDERED: INTRA-ARTICULAR IU ONE ×5 (08:00)
[2022-08-09] MEDS ORDERED: SEVOFLURANE (ULTANE) 15 ML INHAL SOLN ONE (08:49)
[2022-08-09] MEDS ORDERED: HYDROmorphone 2 MG/ML VIAL (DILAUDID) IV ONE (09:15)
--- NOTE | 2022-08-09 09:24 | Progress Note ---
Standard Progress Note Progress Notes/Assess & Plan Date Seen by a Provider: Aug 09, 2022 Time Seen by a Provider: 09:23 Progress/Assessment & Plan no complaints radiographs--HW well positioned without fracture LLE--2 plus DP pulse with brisk cap refill intact DF and PF of toes and ankle intact sensation to light touch throughout s/p LTKA mobilize as able KERMIT VALENCIA MD Aug 09, 2022 09:24
[2022-08-09] MEDS: NS IV 1000 ML 1,000 ML IV SCH ×2 (10:29→20:20)
--- NOTE | 2022-08-09 11:42 | Consultation ---
HPI History of Present Illness: Date Seen 08/09/22 Attending Physician Miracle Phelps MD PCP Admitting Physician: Haroon Reddy MD Attending Physician: Haroon Reddy MD Referring Physician Date of Admission Aug 09, 2022 at 05:56 Home Medications & Allergies Home Medications Reviewed patient Home Medication Reconciliation performed by pharmacy medication reconciliations darkroom technician and/or nursing. Patients Allergies have been reviewed. Allergies Allergies Coded Allergies No Known Drug Allergies (Unverified08/09/22) Past Ygbpfis-Kazzuy-Xsikow Hx Patient Social History Smoking Status: Never a Smoker 2nd Hand Smoke Exposure: Yes Recent Foreign Travel: No Contact w/other who traveled: No Recent Hopitalizations: Yes (OCT 2021, BACK SURGERY) Immunizations Up To Date Date of Pneumonia Vaccine: Dec 08, 2008 Date of Influenza Vaccine: Dec 25, 2012 Seasonal Allergies Seasonal Allergies: Yes Past Medical History Surgeries: Section Currently Using CPAP: No Currently Using BIPAP: No Cardiac: High Cholesterol Reproductive: No Sexually Transmitted Disease: No Genitourinary: Kidney Stones Gastrointestinal: Gastroesophageal Reflux Musculoskeletal: Arthritis HEENT: Cataract Psychosocial: Depression Skin/Integumentary: Eczema History of Blood Disorders: No Physical Exam Physical Exam Vital Signs Vital Signs - First Documented 08/09/22 06:40 Temp 36.4 Pulse 79 Resp 20 B/P (MAP) 149/64 (92) Pulse Ox 97 O2 Delivery Room Air Capillary Refill : Less Than 3 Seconds Height, Weight, BMI Height: 5'3.00" Weight: 125lbs. oz. 56.986116tb; 26.36 BMI Method:Stated Results Results/Procedures Labs Patient resulted labs reviewed. LISETTE OCONNOR DO Aug 09, 2022 11:42
--- NOTE | 2022-08-09 12:37 | Diagnostic Imaging Report ---
INDICATION: Status post knee replacement COMPARISON: None FINDINGS: Two views of the left knee were obtained. Expected postoperative changes are seen from left knee total arthroplasty. Femoral and tibial components appear well-seated. There is no evidence of periprosthetic fracture. There is a small amount of subcutaneous emphysema in the soft tissues over the knee. Skin tara are seen centrally over the anterior aspect of the knee. No unexpected radiopaque foreign bodies are identified. IMPRESSION: Expected postsurgical changes from left knee total arthroplasty, as described above. No unexpected radiopaque foreign bodies. Dictated by: Dictated on workstation # [id number]
[2022-08-09] MEDS ORDERED: GABA300C PO (13:24)
[2022-08-09] MEDS ORDERED: LATA2.5D19 OU (13:24)
[2022-08-09] MEDS ORDERED: SIMV20TA26 PO (13:24)
[2022-08-09] MEDS ORDERED: CALC-147 PO (13:24)
[2022-08-09] MEDS ORDERED: ESCI-2 PO (13:24)
[2022-08-09] MEDS ORDERED: TIMO5DRO8 OU (13:24)
[2022-08-09] MEDS ORDERED: ACET-93 PO (13:24)
[2022-08-09] MEDS ORDERED: MONT-40 PO (13:24)
[2022-08-09] MEDS ORDERED: ALEN70TA80 PO (13:24)
[2022-08-09] MEDS ORDERED: [UNRECOGNIZED DRUG - CODE] PO (13:24)
[2022-08-09] MEDS ORDERED: OXYC1TAB11 PO (13:24)
[2022-08-09] MEDS ORDERED: CELE400C10 PO (13:24)
[2022-08-09] MEDS ORDERED: TRAM50TA3 PO (13:30)
--- NOTE | 2022-08-09 14:11 | OPERATIVE REPORT ---
DATE OF SERVICE: 08/09/2022 PREOPERATIVE DIAGNOSIS: Left knee primary osteoarthritis. POSTOPERATIVE DIAGNOSIS: Left knee primary osteoarthritis. PROCEDURE: Left total knee arthroplasty. SURGEON: Haroon Valencia MD MILITARY SOURCE OPERATIONS OFFICER: Nilesh Worrell, who assisted throughout the procedure and closed the incision. ANESTHESIA: General endotracheal by Ike Meng CRNA. TOURNIQUET TIME: 60 minutes at 300 mmHg. ESTIMATED BLOOD LOSS: Minimal. DRAINS: None. COMPLICATIONS: None. POSTOPERATIVE PLAN: Routine total knee arthroplasty protocol. MATERIALS: MicroPort cemented size 3 femur, cemented size 3 tibia with 10 mm insert and cemented size 29 patellar button. STATEMENT OF MEDICAL NECESSITY: The patient is a 76-year-old female with longstanding progressive left knee pain. She has undergone treatment with injections, anti-inflammatories and rest without relief. Radiographs revealed severe medial and patellofemoral arthrosis. Due to functional impairment and failure to improve with conservative measures, the patient elected to proceed with surgical intervention. DESCRIPTION OF PROCEDURE: After risks and benefits of the procedure were discussed and questions were answered and informed consent was signed and placed on the chart, the operative site was confirmed in the preoperative holding area initialed by the surgeon. The patient was then transported to the operating room and after adequate levels of general endotracheal anesthetic were obtained, a timeout was called, confirming the operative site. The left lower extremity was prepped and draped in the usual sterile fashion. With the leg elevated and the knee flexed, tourniquet was inflated to 300 mmHg. A standard anterior approach was utilized. Hemostasis was obtained with cautery. Medial parapatellar arthrotomy was performed, leaving 1 cm cuff on the patella for later reattachment. A portion of the fat pad was resected. A subperiosteal release was performed on the proximal medial tibia and the ACL was resected. The intramedullary guide was passed into the femoral canal. The distal cutting block was placed. Distal cut was made. The femur was sized to size 3. The 3 cutting block was placed parallel to the epicondylar axis and cuts were made from posterior to anterior. Subperiosteal release was then carefully performed on the posterior distal femur, being careful to stay on the bony surface. The intramedullary guide was then passed into the tibial canal. The cutting block was placed. The drop roger transected the intermalleolar axis and the cut was made. The baseplate was positioned and the drop roger transected the intermalleolar axis and prepared with the drill and keel punch. The trials were inserted with 10 mm insert placed. The patella was then prepared, resecting 10 mm off the undersurface. The peg guide was placed and peg holes were drilled. The 29 trial was placed. Knee was taken through range of motion. Full extension was easily obtained, 130 degrees of flexion with gravity was easily obtained. There was no anterior/posterior or medial/lateral laxity in flexion or extension and the patella tracked well. The trials were removed. The joint was copiously irrigated. The periarticular block was placed in the posterior capsule, medial and lateral retinaculum extensor mechanism and subcutaneous tissues. The bone ends were irrigated and dried. The tibial baseplate was cemented into position. Excessive cement was removed. The superior surface was irrigated and dried and the polyethylene insert was placed. Distal femur was irrigated and dried and the femoral prosthesis was cemented into position. Excessive cement was removed as well. The knee was brought out into full extension until the cement had cured. The undersurface of the patella was irrigated and dried. The patellar button was cemented into position. Excessive cement was removed. Once the cement had cured, the knee was taken through range of motion. Full extension was easily obtained, 130 degrees of flexion with gravity was easily obtained. There was no anterior/posterior or medial/lateral laxity in flexion or extension and the patella tracked well. The joint was further irrigated with pulse lavage and the arthrotomy was closed with #2 Tevdek in yiuevq-ob-zgzre interrupted fashion. The knee was flexed. Repair was stable. Subcutaneous tissues were irrigated with pulse lavage. The deep subcutaneous layer was closed with 0 Vicryl in rvsxyq-pz-plbfp interrupted fashion. The superficial subcutaneous layer was closed with 2-0 Vicryl in simple interrupted fashion. Ashley were used on the skin. A soft dressing was applied. The tourniquet was deflated. The patient was transferred to the recovery room awake and stable condition. Job ID: [id number] DocumentID: [id number] Dictated Date: 08/09/2022 09:12:04 Clinic Physician Date: 08/09/2022 14:09:00 Dictated By: HAROON VALENCIA MD
--- NOTE | 2022-08-09 14:15 | Consultation - Hospitalist ---
HPI History of Present Illness: HPI/Chief Complaint Pt is a 76yoCF admitted to the hospital following left knee TKA. She reports that she is doing well but has expected pain in her knee. Despite this she has already been up and walking and feels that is going well. I am consulted for medical management. Source: patient Date Seen 08/09/22 Attending Physician Jt Blackman MD PCP Admitting Physician: Haroon Reddy MD Attending Physician: Haroon Reddy MD Referring Physician Date of Admission Aug 09, 2022 at 05:56 Home Medications & Allergies Home Medications Reviewed patient Home Medication Reconciliation performed by pharmacy medication reconciliations fingernail technician and/or nursing. Patients Allergies have been reviewed. Allergies Allergies Coded Allergies No Known Drug Allergies (Unverified08/09/22) Past Ldwlpld-Cssxfe-Svyxhk Hx Patient Social History Tobacco Use?: No Smoking Status: Never a Smoker Smokeless Tobacco Frequency: Never a User Substance use?: No Alcohol Use?: No Pt feels they are or have been: No Immunizations Up To Date Date of Influenza Vaccine: Dec 25, 2012 First/Initial COVID19 Vaccinat: 03/25/20 Second COVID19 Vaccination Juan: 04/22/20 Date of Pneumonia Vaccine: Dec 08, 2008 Seasonal Allergies Seasonal Allergies: Yes Current Status Advance Directives: No Communicates: Verbally Primary Language: German Preferred Spoken Language: German Is interpretation needed?: No Implanted or Applied Medical D: None Past Medical History Surgeries: Section Asthma Currently Using CPAP: No Currently Using BIPAP: No High Cholesterol Sexually Transmitted Disease: No Kidney Stones Gastroesophageal Reflux Arthritis Cataract Depression Eczema Blood Disorders: No Review of Systems Constitutional: see HPI Physical Exam Physical Exam Vital Signs Vital Signs - First Documented 08/09/22 06:40 Temp 36.4 Pulse 79 Resp 20 B/P (MAP) 149/64 (92) Pulse Ox 97 O2 Delivery Room Air Capillary Refill : Less Than 3 Seconds Height, Weight, BMI Height: 5'3.00" Weight: 125lbs. oz. [id number]; 26.36 BMI Method:Stated General Appearance: No Apparent Distress, WD/WN Respiratory: Lungs Clear, No Respiratory Distress Cardiovascular: Regular Rate, Rhythm, No Murmur Gastrointestinal: Normal Bowel Sounds, Soft Neurologic/Psychiatric: Alert, Oriented x3 Results Results/Procedures Labs Patient resulted labs reviewed. Imaging: Reviewed Imaging Report Imaging [facility], [place] NAME: KEYANNA SWANSON [facility] REC#: [id number] PT STATUS: ADM IN : 1945 PHYSICIAN: MIREYA ERNST ADMIT DATE: 08/09/22 Draft Date of Exam:08/09/22 KNEE, LEFT, 2 VIEWS (AP & LAT) INDICATION: Status post knee replacement COMPARISON: None FINDINGS: Two views of the left knee were obtained. Expected postoperative changes are seen from left knee total arthroplasty. Femoral and tibial components appear well-seated. There is no evidence of periprosthetic fracture. There is a small amount of subcutaneous emphysema in the soft tissues over the knee. Skin tara are seen centrally over the anterior aspect of the knee. No unexpected radiopaque foreign bodies are identified. IMPRESSION: Expected postsurgical changes from left knee total arthroplasty, as described above. No unexpected radiopaque foreign bodies. Dictated on workstation # [id number] Dict: 08/09/22 1234 Trans: 08/09/22 1237 [facility] [id number] Interpreted by: JOCELYNN DIAZ MD Electronically signed by: Assessment/Plan Assessment and Plan Assess & Plan/Chief Complaint Left knee osteoarthritis s/p TKA osteoporosis management per primary Pain regimen PT/OT Bowel regimen web services professional consulted for likely HH upon DC Asthma HLD Glaucoma Continue home meds DVT ppx: Lovenox Diagnosis/Problems Diagnosis/Problems (1) Osteoarthritis of left knee Qualifiers: Osteoarthritis type: primary Qualified Codes: M17.12 - Unilateral primary osteoarthritis, left knee Copy Copies To 1: JT BLACKMAN MD, KATELYN M MD Aug 09, 2022 14:15
[2022-08-09] MEDS ORDERED: ALPRAZolam 0.25 MG (XANAX) TAB PO PRN (14:45)
[2022-08-09] MEDS: CEFUROXIME INJECTION 750 MG in NS (IVPB) 50 ML IV SCH ×2 (14:51→23:00)
--- NOTE | 2022-08-09 15:05 | Physical Therapy Evaluation ---
PT Evaluation-General Medical Diagnosis Admission Date Aug 09, 2022 at 05:56 Medical Diagnosis: LTKA Onset Date: Aug 09, 2022 Therapy Diagnosis Therapy Diagnosis: Gait deficit, strength deficit Height/Weight Height (Feet): 5 Height (Inches): 3.00 Weight (Pounds): 125 Precautions Precautions/Isolations: Fall Prevention, Standard Precautions Weight Bear Status Right Lower Extremity: Right Full Weight Bearing Left Lower Extremity: Left Weight Bearing/Tolerated Referral Physician: Dr. Reddy Reason for Referral: Evaluation/Treatment Medical History Reviewed History: Yes Social History Home: Single Level Current Living Status: Alone Entry Into Home: Stairs With Railing PT Steps Into Home: 2 Prior Prior Level of Function SCALE: Activities may be completed with or without assistive devices. 2-Tnnnulzzkj-wzmrxxr completes the activity by him/herself with no assistance from a helper. 5-Set-up or Clean-up Assistance-helper sets up or cleans up; patient completes activity. [place] assists only prior to or following the activity. 4-Supervision or Touching Assistance-helper provides verbal cues and/or touching/steadying and/or contact guard assistance as patient completes activity. Assistance may be provided throughout the activity or intermittently. 3-Partial/Moderate Assistance-helper does LESS THAN HALF the effort. [place] lifts, holds or supports trunk or limbs, but provides less than half the effort. 2-Substantial/Maximal Assistance-helper does MORE THAN HALF the effort. [place] lifts or holds trunk or limbs and provides more than half the effort. 1-Vdyebpbrd-zpoidl does ALL the effort. Patient does none of the effort to complete the activity. Or, the assistance of 2 or more helpers is required for the patient to complete the activity. If activity was not attempted, code reason: 7-Patient Refused. 9-Not Applicable-not attempted and the patient did not perform the activity before the current illness, exacerbation or injury. 10-Not Attempted due to Environmental Limitations-(lack of equipment, weather restraints, etc.). 88-Not Attempted due to Medical Conditions or Safety Concerns. Bed Mobility: 6 Transfers (B,C,W/C): 6 Gait: 6 Stairs: 6 Indoor Mobility (Ambulation): Independent Stairs: Independent Prior Devices Use: None PT Evaluation-Current Subjective Patient sitting in chair upon PT arrival, agreeable to treatment. Patient rates pain at 0/10 currently. Objective Patient Orientation: Person, Place, Time, Situation Attachments: Polar Pack, IV ROM/Strength ROM Lower Extremities Left knee flexion 90 degrees, extension lacks 15 degrees sitting in chair. All other Left LE and right LE planes WFLs. Strength Lower Extremities Left Knee 3-/5 flexion and extension; all other left LE planes 3+/5. Right LE 4/5 all planes Sensory Vision: Functional Sensation Right Lower Extremit: Intact Sensation Left Lower Extremity: Impaired Transfers Sit to Stand (QC): 4 Chair/Yeb-zt-Mwmav Xfer(QC): 4 Gait Does the Patient Walk?: Yes Mode of Locomotion: Walk Anticipated Mode of Locomotion: Walk Walk 10 feet (QC): 4 Walk 50 ft with 2 Turns(QC): 4 Distance: 60' Gait Assistive Device: FWW Balance Sitting Static: Normal Sitting Dynamic: Normal Standing Static: Good Standing Dynamic: Fair Assessment/Needs Patient tolerated treatment well. Patient performs all observed transfers with SBA. Patient ambulates 60 feet with FWW, with SBA and verbal cues for safety, progression, balance, posture and conservation of energy. Patient in chair post treatment with all needs met, nursing notified, call light in hand and daughter in the room. Rehab Potential: Fair Equipment Needs FWW PT Assisted Goals Assisted Goals PT Truck Rental Clerk Goals Time Frame: Sep 02, 2022 Roll Left & Right (QC): 6 Sit to Lying (QC): 6 Lying-Sitting on Side/Bed(QC): 6 Sit to Stand (QC): 6 Chair/Uzb-pk-Cfuhg Xfer(QC): 6 Toilet Transfer (QC): 6 Does the Patient Walk: Yes Walk 10 feet (QC): 6 Walk 50ft with 2 Turns (QC): 6 Walk 150 ft (QC): 6 1 Step (curb) (QC): 4 4 Steps (QC): 4 PT Plan Problem List Problem List: Activity Tolerance, Functional Strength, Safety, Balance, Gait, Transfer, Bed Mobility, ROM Treatment/Plan Treatment Plan: Continue Plan of Care Treatment Plan: Bed Mobility, Education, Functional Activity Pradeep, Functional Strength, Group Therapy, Gait, Safety, Therapeutic Exercise, Transfers Treatment Duration: Sep 02, 2022 Frequency: 11 times per week Estimated Hrs Per Day: .25 hour per day Patient and/or Family Agrees t: Yes Safety Risks/Education Patient Education: Gait Training, Transfer Techniques Teaching Recipient: Patient Teaching Methods: Demonstration, Discussion Response to Teaching: Verbalize Understanding, Return Demonstration Time Time In: 1310 Time Out: 1330 DATE: Aug 09, 2022 Total Billed Treatment Time: 20 Total Billed Treatment Visit, LATRICIA GARCÍA PT Aug 09, 2022 15:05
[2022-08-09] MEDS ORDERED: ARTIFICAL TEARS 0.4 ML UNIT DOSE (REFRESH PLUS) OU PRN (15:15)
[2022-08-09] MEDS: AtorvaSTATin TABLET 10 MG TABLET PO SCH (20:12)
[2022-08-09] MEDS: GABAPENTIN 300 MG (NEURONTIN) CAP PO SCH (20:12)
[2022-08-09] MEDS: traZODone 50 MG (DESYREL) TAB PO SCH (20:12)
[2022-08-09] MEDS: MONTELUKAST 10 MG (SINGULAIR) TAB PO SCH (20:12)
[2022-08-09] MEDS: oxyCODONE/APAP 5/325MG (PERCOCET 5) TABLET PO PRN (20:12)
[2022-08-09] MEDS: SENNA W/DOCUSATE (SENOKOT S) TABLET PO SCH (20:12)
[2022-08-09] MEDS ORDERED: CYCL1DRO OP (20:17)
[2022-08-09] MEDS ORDERED: IPRATROPIUM BROMIDE NSEACH SCH (21:00)
[2022-08-09] MEDS ORDERED: NON-FORMULARY MEDICATION 1 EA EA (Cyclosporine (Restasis) 1 DROP) OU SCH (21:00)
[2022-08-09] MEDS ORDERED: PATIENT MAY USE OWN MEDS, ALL MC SCH (21:15)
[2022-08-09] MEDS: LATANOPROST 0.005% (XALATAN) OPHTH SOLN 2.5 ML OU SCH (23:07)
[2022-08-09] MEDS: TIMOLOL MALEATE 0.25% (TIMOPTIC) 5 ML DROPS OU SCH (23:07)
[2022-08-10 03:21] VITALS: BP 107/53
[2022-08-10] MEDS: CYANOCOBALAMIN 1,000 MCG (VITAMIN B-12) TABLET PO SCH (05:28)
[2022-08-10 06:15] LABS: BASOPHILS % (AUTO) 0 % (0-10); EOSINOPHILS % (AUTO) 0 % (0-10); HEMATOCRIT 30 % (35-52); HEMOGLOBIN 9.8 g/dL (11.5-16.0); LYMPHOCYTES # (AUTO) 1.3 10^3/uL (1.0-4.0); LYMPHOCYTES % (AUTO) 9 % (12-44); MEAN CORPUSCULAR HEMOGLOBIN 34 pg (25-34); MEAN CORPUSCULAR HGB CONC 33 g/dL (32-36); MEAN CORPUSCULAR VOLUME 102 fL (80-99); MEAN PLATELET VOLUME 8.9 fL (9.0-12.2); MONOCYTES % (AUTO) 7 % (0-12); NEUTROPHILS # (AUTO) 11.9 10^3/uL (1.8-7.8); NEUTROPHILS % (AUTO) 84 % (42-75); PLATELET COUNT 241 10^3/uL (130-400); WHITE BLOOD COUNT 14.3 10^3/uL (4.3-11.0)
[2022-08-10 06:24] LABS: ALBUMIN 3.8 GM/DL (3.2-4.5); POTASSIUM 4.4 MMOL/L (3.6-5.0)
[2022-08-10 06:25] LABS: CALCIUM 8.9 MG/DL (8.5-10.1)
[2022-08-10 06:26] LABS: TOTAL PROTEIN 5.8 GM/DL (6.4-8.2)
[2022-08-10 06:28] LABS: BILIRUBIN,TOTAL 0.3 MG/DL (0.1-1.0)
[2022-08-10 06:30] LABS: CREATININE SERUM 0.67 MG/DL (0.60-1.30)
[2022-08-10 06:58] LABS: LYMPHOCYTES % (MANUAL) 8 %; MONOCYTES % (MANUAL) 6 %; NEUTROPHILS % (MANUAL) 86 %; RBC MORPH NORMAL
[2022-08-10 07:11] VITALS: BP 118/66
[2022-08-10] MEDS: FLUTICASONE/VILANTEROL 200 MCG 14'S (BREO) IH SCH (07:31)
[2022-08-10] MEDS: UMECLIDINIUM BROMIDE (INCRUSE ELLIPTA) 7'S IH SCH (07:32)
--- NOTE | 2022-08-10 07:44 | Progress Note ---
Standard Progress Note Progress Notes/Assess & Plan Date Seen by a Provider: Aug 10, 2022 Time Seen by a Provider: 07:28 Progress/Assessment & Plan no complaints radiographs--HW well positioned without fracture LLE--2 plus DP pulse with brisk cap refill intact DF and PF of toes and ankle intact sensation to light touch throughout s/p LTKA mobilize as able Final Diagnosis no complaints Laboratory Tests Test 08/10/22 06:04 Range/Units White Blood Count 14.3 H 4.3-11.0 10^3/uL Red Blood Count 2.90 L 3.80-5.11 10^6/uL Hemoglobin 9.8 L 11.5-16.0 g/dL Hematocrit 30 L 35-52 % Mean Corpuscular Volume 102 H 80-99 fL Mean Corpuscular Hemoglobin 34 25-34 pg Mean Corpuscular Hemoglobin Concent 33 32-36 g/dL Red Cell Distribution Width 12.7 10.0-14.5 % Platelet Count 241 130-400 10^3/uL Mean Platelet Volume 8.9 L 9.0-12.2 fL Immature Granulocyte % (Auto) 1 % Neutrophils (%) (Auto) 84 H 42-75 % Lymphocytes (%) (Auto) 9 L 12-44 % Monocytes (%) (Auto) 7 0-12 % Eosinophils (%) (Auto) 0 0-10 % Basophils (%) (Auto) 0 0-10 % Neutrophils # (Auto) 11.9 H 1.8-7.8 10^3/uL Lymphocytes # (Auto) 1.3 1.0-4.0 10^3/uL Monocytes # (Auto) 1.0 0.0-1.0 10^3/uL Eosinophils # (Auto) 0.0 0.0-0.3 10^3/uL Basophils # (Auto) 0.0 0.0-0.1 10^3/uL Immature Granulocyte # (Auto) 0.1 0.0-0.1 10^3/uL Neutrophils % (Manual) 86 % Lymphocytes % (Manual) 8 % Monocytes % (Manual) 6 % Blood Morphology Comment NORMAL Sodium Level 139 135-145 MMOL/L Potassium Level 4.4 3.6-5.0 MMOL/L Chloride Level 106 98-107 MMOL/L Carbon Dioxide Level 26 21-32 MMOL/L Anion Gap 7 5-14 MMOL/L Blood Urea Nitrogen 10 7-18 MG/DL Creatinine 0.67 0.60-1.30 MG/DL Estimat Glomerular Filtration Rate 92 BUN/Creatinine Ratio 15 Glucose Level 114 H 70-105 MG/DL Calcium Level 8.9 8.5-10.1 MG/DL Corrected Calcium 9.1 8.5-10.1 MG/DL Total Bilirubin 0.3 0.1-1.0 MG/DL Aspartate Amino Transf (AST/SGOT) 26 5-34 U/L Alanine Aminotransferase (ALT/SGPT) 19 0-55 U/L Alkaline Phosphatase 44 40-136 U/L Total Protein 5.8 L 6.4-8.2 GM/DL Albumin 3.8 3.2-4.5 GM/DL Vital Signs Date Time Temp Pulse Resp B/P (MAP) Pulse Ox O2 Delivery O2 Flow Rate FiO2 08/10/22 07:11 36.7 79 18 118/66 (83) 95 Room Air 08/10/22 03:21 36.6 78 20 107/53 (71) 93 Room Air 08/09/22 23:26 36.5 81 20 131/60 (83) 96 Room Air 08/09/22 20:00 Room Air 08/09/22 19:43 36.5 93 20 131/60 (83) 98 Room Air 08/09/22 15:35 36.6 94 18 118/57 (77) 96 Room Air 08/09/22 11:44 36.0 98 18 138/78 (98) 93 Room Air 08/09/22 10:12 35.7 101 18 144/80 (101) 92 Room Air 08/09/22 10:00 Room Air 08/09/22 09:55 36.4 15 154/66 (95) 96 Room Air 08/09/22 09:50 Room Air 08/09/22 09:50 20 151/86 (107) 96 Room Air 08/09/22 09:40 15 135/77 (96) 100 OxyMask 4.00 08/09/22 09:35 OxyMask 4.00 08/09/22 09:30 12 155/70 (98) 100 OxyMask 4.00 08/09/22 09:20 OxyMask 8 08/09/22 09:20 14 146/67 (93) 100 OxyMask 8 08/09/22 09:10 16 140/65 (90) 100 OxyMask 8 08/09/22 09:04 36.4 16 151/97 (115) 100 OxyMask 8 08/09/22 09:04 OxyMask 8 I & O 08/10/22 07:00 Intake Total 3210 ml Output Total 2120 ml Balance 1090 ml LLE--no calf tenderness neg Gardenia's NVI distally s/p LTKA doing well continue PT/OT KERMIT VALENCIA MD Aug 10, 2022 07:44
[2022-08-10] MEDS: CELECOXIB 100 MG (CeleBREX) CAP PO SCH (08:03)
[2022-08-10] MEDS: SENNA W/DOCUSATE (SENOKOT S) TABLET PO SCH ×2 (08:03→19:44)
[2022-08-10] MEDS: ENOXAPARIN INJECTION 30 MG/0.3 ML SYR SC SCH ×2 (08:03→19:44)
[2022-08-10] MEDS: ASPIRIN E.C. 81 MG (ECOTRIN) TAB PO SCH (08:03)
[2022-08-10] MEDS: FERROUS SULF 325 MG (IRON) TAB PO SCH (08:03)
[2022-08-10] MEDS: CALCIUM CARB + VIT D 600 MG (CALCARB + D) TAB PO SCH (08:03)
[2022-08-10] MEDS: TIMOLOL MALEATE 0.25% (TIMOPTIC) 5 ML DROPS OU SCH ×2 (08:04→19:44)
[2022-08-10] MEDS: oxyCODONE/APAP 5/325MG (PERCOCET 5) TABLET PO PRN ×2 (08:04→19:43)
--- NOTE | 2022-08-10 08:20 | Physical Therapy Daily Note ---
PT Daily Note-Current Subjective Patient agrees to PT. Family present Pain Numeric Pain Scale: 8 Location: Left Location Body Site: Knee Pain Description: Acute Section J - Health Conditions 1. Rarely or not at all 2. Occasionally 3. Frequently 4. Almost constantly 8. Unable to answer Pain Effect on Sleep: 1 Pain Interference with Therapy: 1 Pain Interference w/Day-to-Day: 1 Mental Status Patient Orientation: Normal For Age Attachments: Polar Pack, IV Transfers SCALE: Activities may be completed with or without assistive devices. 5-Ktfhifeavj-mzhevrv completes the activity by him/herself with no assistance from a helper. 5-Set-up or Clean-up Assistance-helper sets up or cleans up; patient completes activity. [place] assists only prior to or following the activity. 4-Supervision or Touching Assistance-helper provides verbal cues and/or touching/steadying and/or contact guard assistance as patient completes activity. Assistance may be provided throughout the activity or intermittently. 3-Partial/Moderate Assistance-helper does LESS THAN HALF the effort. [place] lifts, holds or supports trunk or limbs, but provides less than half the effort. 2-Substantial/Maximal Assistance-helper does MORE THAN HALF the effort. [place] lifts or holds trunk or limbs and provides more than half the effort. 4-Akwdqrdzh-vrffii does ALL the effort. Patient does none of the effort to complete the activity. Or, the assistance of 2 or more helpers is required for the patient to complete the activity. If activity was not attempted, code reason: 7-Patient Refused. 9-Not Applicable-not attempted and the patient did not perform the activity before the current illness, exacerbation or injury. 10-Not Attempted due to Environmental Limitations-(lack of equipment, weather restraints, etc.). 88-Not Attempted due to Medical Conditions or Safety Concerns. Lying to Sitting/Side of Bed(Q: 6 Sit to Stand (QC): 5 Chair/Kzg-mu-Gyhqv Xfer(QC): 5 Weight Bearing Right Lower Extremity: Right Full Weight Bearing Left Lower Extremity: Left Weight Bearing/Tolerated Gait Training Distance: 250' Walk 10 feet (QC): 4 Walk 50 ft with 2 Turns(QC): 4 Walk 150 ft (QC): 4 Gait Assistive Device: FWW steady, reciprocal pattern Exercises Seated Therapy Exercises: Ankle pumps, Long arc quads Seated Reps: 20 Assessment Patient tolerated treatment well and is up in recliner with needs met. Patient progressing with treatment plan. PT Jail Goals Health Sciences Department Chair Goals PT Health Sciences Department Chair Goals Time Frame: Sep 02, 2022 Roll Left & Right (QC): 6 Sit to Lying (QC): 6 Lying-Sitting on Side/Bed(QC): 6 Sit to Stand (QC): 6 Chair/Hct-gx-Dalnv Xfer(QC): 6 Toilet Transfer (QC): 6 Does the Patient Walk: Yes Walk 10 feet (QC): 6 Walk 50ft with 2 Turns (QC): 6 Walk 150 ft (QC): 6 1 Step (curb) (QC): 4 4 Steps (QC): 4 PT Plan Treatment/Plan Treatment Plan: Continue Plan of Care Treatment Plan: Bed Mobility, Education, Functional Activity Pradeep, Functional Strength, Group Therapy, Gait, Safety, Therapeutic Exercise, Transfers Treatment Duration: Sep 02, 2022 Frequency: 11 times per week Estimated Hrs Per Day: .25 hour per day Patient and/or Family Agrees t: Yes Time Time In: 750 Time Out: 806 DATE: Aug 10, 2022 Total Billed Treatment Time: 16 Total Billed Treatment 1 visit FA 16 min DENIZ PACHECO PT Aug 10, 2022 08:20
[2022-08-10] MEDS ORDERED: CALCIUM CITRATE PO SCH (09:00)
[2022-08-10] MEDS ORDERED: NON-FORMULARY MEDICATION 1 EA EA (Cyanocobalamin (Vitamin B-12) (Vitamin B12) 2,500 MCG) PO SCH (09:00)
[2022-08-10] MEDS ORDERED: BIOTIN 2500 MCG PO SCH (09:00)
[2022-08-10] MEDS ORDERED: VITAMIN D3 PO SCH (09:00)
[2022-08-10] MEDS ORDERED: [UNRECOGNIZED DRUG - OTHER] PO SCH (09:00)
[2022-08-10] MEDS: NS IV 1000 ML 1,000 ML IV SCH (09:31)
--- NOTE | 2022-08-10 10:34 | Anesthesia-General Post-Op ---
General Patient Condition Mental Status/LOC: Same as Preop Cardiovascular: Satisfactory Nausea/Vomiting: Absent Respiratory: Satisfactory Pain: Controlled Complications: Absent Post Op Complications Complications None Follow Up Care/Instructions Patient Instructions None needed. Anesthesia/Patient Condition Patient Condition Patient is doing well, no complaints, stable vital signs, no apparent adverse anesthesia problems. No complications reported per nursing. KAROLINA PIERRE CRNA Aug 10, 2022 10:34
[2022-08-10 11:14] VITALS: BP 113/63
--- NOTE | 2022-08-10 12:40 | Progress Note - Hospitalist ---
Subjective HPI/CC On Admission Date Seen by Provider: Aug 10, 2022 Pt is a 76yoCF admitted to the hospital following left knee TKA. She reports that she is doing well but has expected pain in her knee. Despite this she has already been up and walking and feels that is going well. I am consulted for medical management. Subjective/Events-last exam Pt reports doing well. Pain controlled. Up and walking and doing well. Already has walker with it. Objective Exam Vital Signs Vital Signs Date Time Temp Pulse Resp B/P (MAP) Pulse Ox O2 Delivery O2 Flow Rate FiO2 08/10/22 11:14 36.6 80 18 113/63 (80) 96 Room Air 08/09/22 09:40 4.00 Capillary Refill : Less Than 3 Seconds General Appearance: No Apparent Distress Cardiovascular: Regular Rate, Rhythm, No Murmur Gastrointestinal: Normal Bowel Sounds, Soft Neurologic/Psychiatric: Alert, Oriented x3 Results/Procedures Lab Laboratory Tests 08/10/22 06:04 Patient resulted labs reviewed. Imaging: Reviewed Imaging Report Assessment/Plan Assessment and Plan Assess & Plan/Chief Complaint Left knee osteoarthritis s/p TKA osteoporosis management per primary Pain regimen PT/OT Bowel regimen career services assistant consulted for likely HH upon DC has walker already Likely DC home tomorrow Asthma HLD Glaucoma Continue home meds DVT ppx: Lovenox Will round prn Diagnosis/Problems Diagnosis/Problems (1) Osteoarthritis of left knee Qualifiers: Osteoarthritis type: primary Qualified Codes: M17.12 - Unilateral primary osteoarthritis, left knee GOYO LOPEZ MD Aug 10, 2022 12:40
--- NOTE | 2022-08-10 14:04 | Physical Therapy Daily Note ---
PT Daily Note-Current Subjective Patient agrees to PT. Pain Section J - Health Conditions 1. Rarely or not at all 2. Occasionally 3. Frequently 4. Almost constantly 8. Unable to answer Pain Effect on Sleep: 1 Pain Interference with Therapy: 1 Pain Interference w/Day-to-Day: 1 Mental Status Patient Orientation: Normal For Age Transfers SCALE: Activities may be completed with or without assistive devices. 5-Osafeulclz-suamkwk completes the activity by him/herself with no assistance from a helper. 5-Set-up or Clean-up Assistance-helper sets up or cleans up; patient completes activity. [place] assists only prior to or following the activity. 4-Supervision or Touching Assistance-helper provides verbal cues and/or touching/steadying and/or contact guard assistance as patient completes activity. Assistance may be provided throughout the activity or intermittently. 3-Partial/Moderate Assistance-helper does LESS THAN HALF the effort. [place] lifts, holds or supports trunk or limbs, but provides less than half the effort. 2-Substantial/Maximal Assistance-helper does MORE THAN HALF the effort. [place] lifts or holds trunk or limbs and provides more than half the effort. 1-Fwesjkyxz-iysrwf does ALL the effort. Patient does none of the effort to complete the activity. Or, the assistance of 2 or more helpers is required for the patient to complete the activity. If activity was not attempted, code reason: 7-Patient Refused. 9-Not Applicable-not attempted and the patient did not perform the activity before the current illness, exacerbation or injury. 10-Not Attempted due to Environmental Limitations-(lack of equipment, weather restraints, etc.). 88-Not Attempted due to Medical Conditions or Safety Concerns. Lying to Sitting/Side of Bed(Q: 6 Sit to Stand (QC): 5 Chair/Spw-oy-Oxmmt Xfer(QC): 5 Toilet Transfer (QC): 5 Weight Bearing Right Lower Extremity: Right Full Weight Bearing Left Lower Extremity: Left Weight Bearing/Tolerated Gait Training Distance: 400' Walk 10 feet (QC): 5 Walk 50 ft with 2 Turns(QC): 5 Walk 150 ft (QC): 5 Gait Assistive Device: FWW steady reciprocal pattern Stair Training Stair Training: Handrails/: 2 handrails #of Steps: 8 1 Step (curb) (QC): 4 4 Steps (QC): 4 Stairs: Pattern: Step to Exercises Supine Ex: Ankle pumps, Quad Set, Heel Slides, Straight leg raise Supine Reps: 15 Seated Therapy Exercises: Long arc quads Seated Reps: 15 Assessment Patient progressing with treatment plan and will dismiss to home tomorrow with family . PT instructed family to ambulate with patient PRN. left knee AROM 90 degrees flexion PT Assisted Goals Assisted Goals PT [employer] Director Goals Time Frame: Sep 02, 2022 Roll Left & Right (QC): 6 Sit to Lying (QC): 6 Lying-Sitting on Side/Bed(QC): 6 Sit to Stand (QC): 6 Chair/Ecr-bg-Ambmo Xfer(QC): 6 Toilet Transfer (QC): 6 Does the Patient Walk: Yes Walk 10 feet (QC): 6 Walk 50ft with 2 Turns (QC): 6 Walk 150 ft (QC): 6 1 Step (curb) (QC): 4 4 Steps (QC): 4 PT Plan Treatment/Plan Treatment Plan: Continue Plan of Care Treatment Plan: Bed Mobility, Education, Functional Activity Pradeep, Functional Strength, Group Therapy, Gait, Safety, Therapeutic Exercise, Transfers Treatment Duration: Sep 02, 2022 Frequency: 11 times per week Estimated Hrs Per Day: .25 hour per day Patient and/or Family Agrees t: Yes Time Time In: 1330 Time Out: 1355 DATE: Aug 10, 2022 Total Billed Treatment Time: 25 Total Billed Treatment 1 visit EX 10 min FA 15 min DENIZ PACHECO PT Aug 10, 2022 14:04
[2022-08-10 15:25] VITALS: BP 105/61
[2022-08-10 19:21] VITALS: BP 105/51
[2022-08-10] MEDS: MONTELUKAST 10 MG (SINGULAIR) TAB PO SCH (19:43)
[2022-08-10] MEDS: GABAPENTIN 300 MG (NEURONTIN) CAP PO SCH (19:43)
[2022-08-10] MEDS: AtorvaSTATin TABLET 10 MG TABLET PO SCH (19:44)
[2022-08-10] MEDS: LATANOPROST 0.005% (XALATAN) OPHTH SOLN 2.5 ML OU SCH (19:44)
[2022-08-10] MEDS: traZODone 50 MG (DESYREL) TAB PO SCH (19:44)
[2022-08-10 23:18] VITALS: BP 97/44
--- NOTE | 2022-08-11 01:24 | DISCHARGE SUMMARY ---
DIAGNOSES: 1. Left knee primary osteoarthritis. 2. Depression. 3. Hypercholesterolemia. 4. History of lumbar spine disease. PROCEDURE: Left total knee arthroplasty. SUMMARY: The patient is a 76-year-old female who underwent a left total knee arthroplasty on date of admission. Postoperatively, she did well. At time of discharge, her wound was clean and dry. She had no calf tenderness. Negative Homans sign. She was tolerating diet well and tolerating pain with oral pain medication. CONDITION AT DISCHARGE: Good. DISCHARGE DIET: Regular. FOLLOWUP: Followup in 3 weeks. Home physical therapy has been arranged. ACTIVITIES: Weightbearing as tolerated with a walker. DIET: Regular. DISCHARGE MEDICATIONS: One aspirin per day for 30 days and tramadol as needed for pain with Percocet for breakthrough pain. Job ID: [id number] DocumentID: [id number] Dictated Date: 08/10/2022 07:45:54 Client Success Director Date: 08/11/2022 01:22:00 Dictated By: KERMIT VALENCIA MD
[2022-08-11 03:34] VITALS: BP 97/46
[2022-08-11] MEDS: CYANOCOBALAMIN 1,000 MCG (VITAMIN B-12) TABLET PO SCH (05:27)
[2022-08-11 05:46] LABS: BASOPHILS % (AUTO) 0 % (0-10); EOSINOPHILS % (AUTO) 0 % (0-10); HEMATOCRIT 26 % (35-52); LYMPHOCYTES # (AUTO) 1.9 10^3/uL (1.0-4.0); LYMPHOCYTES % (AUTO) 22 % (12-44); MEAN CORPUSCULAR HEMOGLOBIN 33 pg (25-34); MEAN CORPUSCULAR HGB CONC 31 g/dL (32-36); MEAN CORPUSCULAR VOLUME 105 fL (80-99); MEAN PLATELET VOLUME 9.1 fL (9.0-12.2); MONOCYTES # (AUTO) 0.7 10^3/uL (0.0-1.0); MONOCYTES % (AUTO) 9 % (0-12); NEUTROPHILS # (AUTO) 5.7 10^3/uL (1.8-7.8); NEUTROPHILS % (AUTO) 68 % (42-75); PLATELET COUNT 181 10^3/uL (130-400); WHITE BLOOD COUNT 8.3 10^3/uL (4.3-11.0)
[2022-08-11 06:00] LABS: ALBUMIN 3.4 GM/DL (3.2-4.5); POTASSIUM 4.2 MMOL/L (3.6-5.0)
[2022-08-11 06:01] LABS: CALCIUM 8.5 MG/DL (8.5-10.1)
[2022-08-11 06:03] LABS: TOTAL PROTEIN 5.3 GM/DL (6.4-8.2)
[2022-08-11 06:04] LABS: BILIRUBIN,TOTAL 0.3 MG/DL (0.1-1.0)
[2022-08-11 06:06] LABS: CREATININE SERUM 0.64 MG/DL (0.60-1.30)
--- NOTE | 2022-08-11 07:07 | Progress Note ---
Standard Progress Note Progress Notes/Assess & Plan Date Seen by a Provider: Aug 11, 2022 Time Seen by a Provider: 06:52 Progress/Assessment & Plan no complaints radiographs--HW well positioned without fracture LLE--2 plus DP pulse with brisk cap refill intact DF and PF of toes and ankle intact sensation to light touch throughout s/p LTKA mobilize as able Final Diagnosis no complaints Laboratory Tests Test 08/11/22 05:35 Range/Units White Blood Count 8.3 4.3-11.0 10^3/uL Red Blood Count 2.44 L 3.80-5.11 10^6/uL Hemoglobin 8.0 L 11.5-16.0 g/dL Hematocrit 26 L 35-52 % Mean Corpuscular Volume 105 H 80-99 fL Mean Corpuscular Hemoglobin 33 25-34 pg Mean Corpuscular Hemoglobin Concent 31 L 32-36 g/dL Red Cell Distribution Width 13.3 10.0-14.5 % Platelet Count 181 130-400 10^3/uL Mean Platelet Volume 9.1 9.0-12.2 fL Immature Granulocyte % (Auto) 0 % Neutrophils (%) (Auto) 68 42-75 % Lymphocytes (%) (Auto) 22 12-44 % Monocytes (%) (Auto) 9 0-12 % Eosinophils (%) (Auto) 0 0-10 % Basophils (%) (Auto) 0 0-10 % Neutrophils # (Auto) 5.7 1.8-7.8 10^3/uL Lymphocytes # (Auto) 1.9 1.0-4.0 10^3/uL Monocytes # (Auto) 0.7 0.0-1.0 10^3/uL Eosinophils # (Auto) 0.0 0.0-0.3 10^3/uL Basophils # (Auto) 0.0 0.0-0.1 10^3/uL Immature Granulocyte # (Auto) 0.0 0.0-0.1 10^3/uL Sodium Level 140 135-145 MMOL/L Potassium Level 4.2 3.6-5.0 MMOL/L Chloride Level 108 H 98-107 MMOL/L Carbon Dioxide Level 26 21-32 MMOL/L Anion Gap 6 5-14 MMOL/L Blood Urea Nitrogen 17 7-18 MG/DL Creatinine 0.64 0.60-1.30 MG/DL Estimat Glomerular Filtration Rate 93 BUN/Creatinine Ratio 27 Glucose Level 97 70-105 MG/DL Calcium Level 8.5 8.5-10.1 MG/DL Corrected Calcium 9.0 8.5-10.1 MG/DL Total Bilirubin 0.3 0.1-1.0 MG/DL Aspartate Amino Transf (AST/SGOT) 19 5-34 U/L Alanine Aminotransferase (ALT/SGPT) 16 0-55 U/L Alkaline Phosphatase 48 40-136 U/L Total Protein 5.3 L 6.4-8.2 GM/DL Albumin 3.4 3.2-4.5 GM/DL Vital Signs Date Time Temp Pulse Resp B/P (MAP) Pulse Ox O2 Delivery O2 Flow Rate FiO2 08/11/22 03:34 36.3 80 20 97/46 (63) 93 Room Air 08/10/22 23:18 36.7 84 20 97/44 (61) 91 Room Air 08/10/22 19:50 Room Air 08/10/22 19:21 36.9 79 18 105/51 (69) Room Air 08/10/22 15:25 36.4 82 18 105/61 (76) 95 Room Air 08/10/22 11:14 36.6 80 18 113/63 (80) 96 Room Air 08/10/22 08:00 Room Air 08/10/22 07:32 94 08/10/22 07:11 36.7 79 18 118/66 (83) 95 Room Air I & O 08/11/22 07:00 Intake Total 2040 ml Balance 2040 ml L knee incision clean and dry no calf tenderness neg Anupam's s/p LTKA doing well DC home after PT today KERMIT VALENCIA MD Aug 11, 2022 07:07
[2022-08-11] MEDS: FLUTICASONE/VILANTEROL 200 MCG 14'S (BREO) IH SCH (07:45)
[2022-08-11] MEDS: UMECLIDINIUM BROMIDE (INCRUSE ELLIPTA) 7'S IH SCH (07:46)
--- NOTE | 2022-08-11 07:49 | Physical Therapy Daily Note ---
PT Daily Note-Current Subjective Patient agrees to PT. Pain Numeric Pain Scale: 5-Moderate Pain Location: Left Location Body Site: Knee Pain Description: Acute Section J - Health Conditions 1. Rarely or not at all 2. Occasionally 3. Frequently 4. Almost constantly 8. Unable to answer Pain Effect on Sleep: 1 Pain Interference with Therapy: 1 Pain Interference w/Day-to-Day: 1 Mental Status Patient Orientation: Normal For Age Transfers SCALE: Activities may be completed with or without assistive devices. 7-Nzjlffkwfe-qhopsis completes the activity by him/herself with no assistance from a helper. 5-Set-up or Clean-up Assistance-helper sets up or cleans up; patient completes activity. [place] assists only prior to or following the activity. 4-Supervision or Touching Assistance-helper provides verbal cues and/or touching/steadying and/or contact guard assistance as patient completes activity. Assistance may be provided throughout the activity or intermittently. 3-Partial/Moderate Assistance-helper does LESS THAN HALF the effort. [place] lifts, holds or supports trunk or limbs, but provides less than half the effort. 2-Substantial/Maximal Assistance-helper does MORE THAN HALF the effort. [place] lifts or holds trunk or limbs and provides more than half the effort. 5-Tlbbcyjon-haploc does ALL the effort. Patient does none of the effort to complete the activity. Or, the assistance of 2 or more helpers is required for the patient to complete the activity. If activity was not attempted, code reason: 7-Patient Refused. 9-Not Applicable-not attempted and the patient did not perform the activity before the current illness, exacerbation or injury. 10-Not Attempted due to Environmental Limitations-(lack of equipment, weather restraints, etc.). 88-Not Attempted due to Medical Conditions or Safety Concerns. Lying to Sitting/Side of Bed(Q: 6 Sit to Stand (QC): 5 Chair/Upm-lq-Ihhqb Xfer(QC): 5 Weight Bearing Right Lower Extremity: Right Full Weight Bearing Left Lower Extremity: Left Weight Bearing/Tolerated Gait Training Distance: 200' Walk 10 feet (QC): 5 Walk 50 ft with 2 Turns(QC): 5 Walk 150 ft (QC): 5 Gait Assistive Device: FWW VC's for body placement in FWW/reciprocal pattern/slightly antalgic Exercises Supine Ex: Ankle pumps, Quad Set, Heel Slides, Straight leg raise Supine Reps: 15 Seated Therapy Exercises: Long arc quads Seated Reps: 15 Assessment Patient tolerated treatment and is up in recliner with needs met. Patient did have an episode of feeling "light headed" and recovered after a seated break. Patient AROM left knee 5-90 degrees. Patient instructed to perform HEP issued at preop. Patient voices understanding. PT to dismiss patient from services at this time. PT Bread Pan Greaser Goals Long-Term Goals PT Long-Term Goals Time Frame: Sep 02, 2022 Roll Left & Right (QC): 6 Sit to Lying (QC): 6 Lying-Sitting on Side/Bed(QC): 6 Sit to Stand (QC): 6 Chair/Wla-uy-Zgihm Xfer(QC): 6 Toilet Transfer (QC): 6 Does the Patient Walk: Yes Walk 10 feet (QC): 6 Walk 50ft with 2 Turns (QC): 6 Walk 150 ft (QC): 6 1 Step (curb) (QC): 4 4 Steps (QC): 4 PT Plan Treatment/Plan Treatment Plan: Discontinue PT Treatment Plan: Bed Mobility, Education, Functional Activity Pradeep, Functional Strength, Group Therapy, Gait, Safety, Therapeutic Exercise, Transfers Treatment Duration: Sep 02, 2022 Frequency: 11 times per week Estimated Hrs Per Day: .25 hour per day Patient and/or Family Agrees t: Yes Time Time In: 715 Time Out: 743 DATE: Aug 11, 2022 Total Billed Treatment Time: 28 Total Billed Treatment 1 visit EX 15 min GT 13 min DENIZ PACHECO PT Aug 11, 2022 07:49
[2022-08-11] MEDS: ENOXAPARIN INJECTION 30 MG/0.3 ML SYR SC SCH (08:11)
[2022-08-11] MEDS: ASPIRIN E.C. 81 MG (ECOTRIN) TAB PO SCH (08:15)
[2022-08-11] MEDS: SENNA W/DOCUSATE (SENOKOT S) TABLET PO SCH (08:15)
[2022-08-11] MEDS: FERROUS SULF 325 MG (IRON) TAB PO SCH (08:15)
[2022-08-11] MEDS: TIMOLOL MALEATE 0.25% (TIMOPTIC) 5 ML DROPS OU SCH (08:16)
[2022-08-11] MEDS: CELECOXIB 100 MG (CeleBREX) CAP PO SCH (08:16)
[2022-08-11] MEDS: CALCIUM CARB + VIT D 600 MG (CALCARB + D) TAB PO SCH (08:17)
== END 2022-08-11 09:48 | disposition home health service (06) | DRG 470 ==
LOC: 4TH 05:56 → SURG 05:57 → 4TH 10:05
PROVIDERS: ADMIT Orthopaedic Surgery; ATTEND Orthopaedic Surgery
PROC: 0SRD0J9 Replacement of Left Knee Joint with Synthetic Substitute, Cemented, Open Approach (ICD-10-PCS; principal; 2022-08-09 07:31)
DX: M17.11 Unilateral primary osteoarthritis, right knee (principal); F32.A Depression, unspecified; E78.00 Pure hypercholesterolemia, unspecified; J45.909 Unspecified asthma, uncomplicated; K21.9 Gastro-esophageal reflux disease without esophagitis; M19.90 Unspecified osteoarthritis, unspecified site; M81.0 Age-related osteoporosis without current pathological fracture; H40.9 Unspecified glaucoma
CPT/HCPCS: 36415; 73560; 80053; 85007; 85025; 85027; 86850; 86900; 86901; 94640; 94664; 94760

== ENCOUNTER → 2023-01-09 | Outpatient (CLI) | payer MEDICARE, OTHER ==
[~2023-01-09] MED LIST changes: +ACET-93 PO; +ALEN70TA80 PO; +CALC-147 PO; +CELE400C16 PO; +CELE50CA PO; +CYCL1DRO OP; +ESCI-2 PO; +GABA300C PO; +GBPN600T PO; +LATA2.5D19 OU; +MONT-40 PO; +OXYC1TAB11 PO; +SIMV20TA26 PO; +TIMO5DRO8 OU; +TRAM50TA3 PO; +[UNRECOGNIZED DRUG - CODE] PO
--- NOTE | 2023-01-09 15:39 | Diagnostic Imaging Report ---
INDICATION: Postmenopausal state COMPARISON: 08/23/2021 FINDINGS: AP Spine L1-L4: [BMD (g/cm2): NA] [T-Score: NA] [Z-Score: NA] [BMD Previous: NA] [BMD % Change: NA] LT Hip Neck: [BMD (g/cm2): 0.848] [T-Score: -1.4] [Z-Score: 0.7] LT Hip Total: [BMD (g/cm2):0.823] [T-Score:-1.5] [Z-Score: 0.4] [BMD Previous: 0.781] [BMD % Change: 5.4*] RT Hip Neck: [BMD (g/cm2):0.847] [T-Score:-1.4] [Z-Score:0.7] RT Hip Total: [BMD (g/cm2):0.819] [T-score:-1.5] [Z-Score:0.4] [BMD Previous:0.801] [BMD % Change:2.2] *Indicates significant change from prior examination based on 95% confidence level. World Health Organization criteria for BMD interpretation classify patients as Normal (T-score at or above -1.0), Osteopenic (T-score between -1.0 and -2.5) or Osteoporotic (T-score at or below -2.5). LIMITATIONS AND MODIFICATION: Lumbar spine was not evaluated secondary to postsurgical changes. FRACTURE RISK (FRAX SCORE): The ten year probability of (%): Major Osteoporotic Fracture: [15.1] Hip Fracture: [2.8] IMPRESSION: 1. Osteopenia (Low bone mass). 2. Bone mineral density within the left hip has not significantly increased prior to examination. Bone mineral density within the right hip has not significantly changed. 3. See below National Osteoporosis Foundation guidelines on when to potentially initiate pharmacologic therapy. Based on the National Osteoporosis Foundation Guidelines, pharmacologic treatment should be initiated in any of the following, unless clinical conditions suggest otherwise: * Any patient with prior fragility fracture of the hip or vertebrae. A spine fracture indicates 5X risk for subsequent spine fracture and 2X risk for subsequent hip fracture. * Osteoporosis (T-score <-2.5). * Postmenopausal women and men age 50 and older with low bone mass/osteopenia (T-score between -1.0 and -2.5) by DXA and 10-year major osteoporotic fracture greater than 20% or a 10-year probability of hip fracture greater than 3%. These fracture risks are supplied above in the FRAX score, if applicable. * Clinician judgement and/or patient preferences may indicate treatment for people with 10-year fracture probabilities above or below these levels. Dictated by: Dictated on workstation # [id number]
== END ==
LOC: RAD 12:19
PROVIDERS: ATTEND Pediatrics
DX: M81.0 Age-related osteoporosis without current pathological fracture (principal); M85.80 Other specified disorders of bone density and structure, unspecified site; Z78.0 Asymptomatic menopausal state
CPT/HCPCS: 77080